=== PATIENT | female | born 1945 | race Caucasian/White ===

== ENCOUNTER 2018-06-01 15:52 | Inpatient (IN) | payer OTHER ==
[~2018-06-01] VITALS: Ht 157.5 cm; Wt 82.6 kg
[2018-06-01 16:14] LABS: ABSOLUTE BASOPHIL COUNT 0 /CUMM (0.0-0.2); ABSOLUTE EOSINOPHIL COUNT 0 /CUMM (0.0-0.7); ABSOLUTE GRANULOCYTE CT 12.3 /CUMM (1.4-6.5); ABSOLUTE MONOCYTE COUNT 0.5 /CUMM (0.10-0.60); BASOPHIL % 0 % (0.0-2.0); EOSINOPHIL % 0.1 % (0-5); GRANULOCYTE % 89.2 % (42.2-75.2); HEMATOCRIT 43.2 % (37-47); MEAN CORPUSCULAR HGB 26.8 PG (27.0-31.0); MEAN CORPUSCULAR HGB CONC 32.6 G/DL (33.0-37.0); MEAN CORPUSCULAR VOLUME 82.1 FL (81.0-99.0); MEAN PLATELET VOLUME 7.6 FL (7.4-10.4); PLATELET COUNT 281 /CUMM (130-400); RBC DISTRIBUTION WIDTH 14.2 % (11.5-14.5); RED BLOOD CELL CT 5.26 /CUMM (4.20-5.40)
[2018-06-01 16:30] LABS: WHITE BLOOD CELL COUNT 13.8 /CUMM (4.8-10.8)
--- NOTE | 2018-06-01 16:45 | RADIOLOGY REPORT ---
EXAMINATION: XR CHEST CLINICAL INFORMATION: Chest pain COMPARISON: None TECHNIQUE: 2 views of the chest were obtained. FINDINGS: No focal consolidation, pleural effusion or pneumothorax. Heart size is normal. No acute osseous abnormality. IMPRESSION: No acute pulmonary process.
--- NOTE | 2018-06-01 18:12 | CT SCAN REPORT ---
EXAMINATION: CT ABDOMEN AND PELVIS WITHOUT CONTRAST CLINICAL INFORMATION: Epigastric abdominal pain COMPARISON: None TECHNIQUE: Multidetector volumetric imaging was performed from the superior aspect of the liver through the pubic symphysis. Sagittal and coronal reformatted images were obtained on the technologist's workstation. DLP: 448.53 mGy-cm FINDINGS: LUNG BASES: The visualized lung bases are unremarkable. LIVER, GALLBLADDER, AND BILIARY TREE: Diffusely decreased attenuation of the hepatic parenchyma. The liver is normal in size and contour. Cholelithiasis. No pericholecystic inflammatory changes. The gallbladder is physiologically distended. Possible gallbladder wall thickening. No pericholecystic fluid definitively seen. PANCREAS: Unremarkable. SPLEEN: Unremarkable. ADRENAL GLANDS: Unremarkable. KIDNEYS AND URETERS: 2.3 cm hypodensity of the mid to lower lateral cortex of the right kidney measuring internal attenuation of 15 Hounsfield units. 1.6 cm hypodense lesion exophytic off the posterior lower pole cortex of the left kidney measuring internal attenuation of 13 Hounsfield units. 2.1 cm hypodensity exophytic off the interpolar cortex of the left kidney measuring internal attenuation of 11 Hounsfield units. Bilobed 3.3 x 2.5 cm hypodensity within the right lower posterolateral cortex of the left kidney measuring internal attenuation of 16 Hounsfield units. No evidence of hydronephrosis or perinephric stranding bilaterally. No renal calculi identified bilaterally. BLADDER: Unremarkable. GASTROINTESTINAL TRACT: Most of the colon is decompressed. The appendix is unremarkable. No evidence of bowel obstruction or perforation. No intraperitoneal free air. ABDOMINAL WALL: No significant hernia is appreciated. LYMPH NODES: No lymphadenopathy within the abdomen or pelvis by CT criteria. VASCULAR: No abdominal aortic aneurysm. PELVIC VISCERA: Unremarkable. OSSEOUS STRUCTURES: Multilevel degenerative changes of the spine. IMPRESSION: 1. No evidence of acute abnormality within the abdomen or pelvis. 2. Cholelithiasis. The gallbladder may have a slightly thickened wall, however there is no pericholecystic fluid or pericholecystic inflammatory changes. Furthermore, the gallbladder is not distended. This CT evidence does not favor acute cholecystitis. Correlation with right upper quadrant ultrasound as well as clinical presentation is recommended. In the absence of acute tenderness over the gallbladder, this may represent subclinical chronic cholecystitis. 3. Hypodense lesions within the renal cortices bilaterally. Evaluation of the kidneys is significantly limited without IV contrast. These most likely represent renal cysts and can be confirmed with renal ultrasound. 4. Diffusely decreased attenuation of the hepatic parenchyma, a nonspecific finding but most commonly on the basis of diffuse hepatocellular disease such as hepatic steatosis.
--- NOTE | 2018-06-01 21:34 | History & Physical ---
James Alvarez 06/01/182132: General Information and HPI MD Statement: I have seen and personally examined DIPTI MONTELONGO and documented this H&P. The patient is a 72 year old F who presented with a patient stated chief complaint of [nausea, vomiting & epigastric pain]. Source of Information: patient, family Exam Limitations: no limitations History of Present Illness: 72 year old female with history of HLD and diabetes mellitus with diabetic nephropathy on home insulin, presents with 3 days of nausea and vomiting, associated with a burning epigastric pain that radiates down and to either side of her upper abdomen, but never to the back. The patient began feeling the burning pain in her epigastrum on Saturday, and she soon lost her appetite and began experiencing nausea and vomiting. Her last meal was on Saturday when she drank a bottle of water and ate a saltine cracker. Since then she has not been able to keep any food down. She reports that she spent the day prior to admission vomiting and feeling nauseous. She specifically denied chest pain, shortness of breath, palpitations, fever or chills. She denied recent travel, sick contacts at home, or eating anything that made anyone else sick. She sees Dr. Morales for her diabetes, and lives at home with her family. Denied tobacco, ETOH or other illicit drug use. Past History Travel History Traveled to [place] past 21 day No Medical History Neurological: NONE EENT: BILATERAL CATARACTS Cardiovascular: NONE Respiratory: NONE Gastrointestinal: NONE Hepatic: NONE Renal: NONE Musculoskeletal: NONE Psychiatric: NONE Endocrine: diabetes, THYROID NODULES Surgical History Surgical History: non-contributory Exam & Diagnostic Data Last 24 Hrs of Vital Signs/I&O Vital Signs Date Time Temp Pulse Resp B/P B/P Pulse O2 O2 Flow FiO2 Mean Ox Delivery Rate 06/010 99.1 95 17 148/72 95 06/01 2234 98.8 105 20 158/82 96 Room Air 06/01 1936 190/84 06/01 1840 98.8 105 20 210/90 97 Room Air 06/01 1635 95 188/102 06/01 1607 97.8 105 18 205/105 95 Room Air Room Air Intake & Output 06/02 0800 06/02 0000 06/01 1600 Intake Total Output Total Balance Patient 82.242 kg Weight Physical Exam General Appearance Alert, Oriented X3, Cooperative, No Acute Distress Last 24 Hrs of Labs/Rolo: Laboratory Tests 06/02/18 0155: Troponin I Pending 06/01/18 2311: Lactic Acid Cancelled 06/01/182022: Urinalysis MOD H, Urine Color YEL, Urine Clarity CLEAR, Urine pH 6.5, Ur Specific [place] 1.025, Urine Protein >=300 H, Urine Ketones NEG, Urine Nitrite NEG, Urine Bilirubin NEG, Urine Urobilinogen 0.2, Ur Leukocyte Esterase NEG, Ur Microscopic SEDIMENT EXAMINED, Urine RBC 3-5, Urine WBC RARE, Ur Epithelial Cells FEW, Urine Bacteria FEW H, Hyaline Casts 10-15 H, Granular Casts RARE H , Urine Mucus FEW, Urine Hemoglobin MOD H, Urine Glucose >=1000 H 06/01/182022: Lactic Acid 1.8, Urine Osmolality 524, Ur Random Creatinine 49.5, Ur Random Sodium 108 H, Ur Random Potassium 47.4, Fraction Sodium Excret 4.0 H 06/01/18 1900: Troponin I 0.02 06/01/18 1608: Anion Gap 16, Estimated GFR 20 L, BUN/Creatinine Ratio 15.8, Glucose 485 H, Lactic Acid 3.8 H, Calcium 9.4, Phosphorus 3.4, Magnesium 1.7, Total Bilirubin 1.0, AST 24, ALT 32, Alkaline Phosphatase 94, Troponin I < 0.01, Total Protein 7.6, Albumin 4.2, Globulin 3.4, Albumin/Globulin Ratio 1.2, Lipase 246, CBC w Diff NO MAN DIFF REQ, RBC 5.26, MCV 82.1, MCH 26.8 L, MCHC 32.6 L, RDW 14.2, MPV 7.6, Gran % 89.2 H, Lymphocytes % 6.9 L, Monocytes % 3.8, Eosinophils % 0.1, Basophils % 0, Absolute Granulocytes 12.3 H, Absolute Lymphocytes 1.0 L, Absolute Monocytes 0.5, Absolute Eosinophils 0, Absolute Basophils 0 Microbiology 06/01 2032 URINE ROUT: Urine Culture - RECD Assessment/Plan Assessment: 72 year old diabetic female presenting with hypertensive urgency, nausea, vomiting and TANIA on CKD, with epigastric pain concerning for atypical chest pain. Blood pressure in the ED was noted to be 210/90. Last known HgB A1C was 7.1 in November,. EKG showed non-specific T-wave changes. CT abdomen/pelvis showed: Cholelithiasis and slightly thickened gallbladder wall , with no pericholecystic fluid or pericholecystic inflammatory changes, and non -distended gallbladder. Hypodense lesions within the renal cortices bilaterally, although evaluation of the kidneys is significantly limited without IV contrast. Most likely representing renal cysts and can be confirmed with renal ultrasound. Problems: 1. Hypertensive urgency 2. Atypical chest pain 3. Diabetes mellitus & hyperglycemia 4. CKD stage III Plan: -Admit the patient to telemetry -Repeat EKG & Troponins -Consider cardiology consultation -RUQ ultrasound r/o cholecystitis -Renal ultrasound -Endocrinology consultation (Dr. Morales) -Consider nephrology consultation after renal ultrasound -Dilaudid 0.5mg IV PRN Q6H pain -Resume home dose of Levemir insulin, 16 units sub-q each am -Novolin sliding scale Q6H -D5-NS IV 75mL/hr -Zofran 4mg IV Q8H PRN nausea/vomiting -Consider GI consultation DNR/DNI Clear liquid diet for now ALPS & Heparin DVT ppx As Ranked By This Provider Problem List: 1. TANIA (acute kidney injury) 2. Hyperglycemia Core Measures/Misc (06/02) Acute Coronary Syndrome ACS Diagnosis: No Congestive Heart Failure Congestive Heart Failure Diagnosis No Cerebrovascular Accident CVA/TIA Diagnosis: No VTE (View Protocol) VTE Risk Factors Age>40 No Mechanical VTE Prophylaxis d/t N/A MechProphylax Ordered No VTE Pharm Prophylaxis d/t NA PharmProphylax ordered Sepsis (View protocol) Sepsis Present: No If YES complete Sepsis Event Note If YES complete Sepsis Event Note Yee Moscoso MD 06/02/18 0151: Core Measures/Misc (06/02) Sepsis (View protocol) If YES complete Sepsis Event Note If YES complete Sepsis Event Note Resident Review Statement Resident Statement: examined this patient, discussed with internal combustion engine subassembler, agreed with internal combustion engine subassembler, discussed with family, reviewed EMR data (avail), amended to note Other Findings: Patient is a 72-year-old obese female with past medical history significant for diabetes, diabetic neuropathy presenting this admission with chief complaint of nausea and vomiting. Patient reports she started having nausea and vomiting over the past 2 days with her last episode of emesis on the morning of admission. Per ED notes patient had Silverio's prior to her symptoms. Patient reports that she is unable to tolerate food or water. Associated symptoms include epigastric pain which she describes as a burning sensation along with hiccups. Reports that that pain travels from the epigastric region to her right and left upper quadrants. Denies any radiation to the back. Patient denies any hematemesis. Denies constipation/diarrhea. Denies dysuria/hematuria, fever/chills. Denies shortness of breath, palpitations. Reports numbness and tingling in her feet due to diabetic neuropathy that has unchanged. Patient denies any recent sick contacts, travel, bug bites/tick bites. Reports she recently acquired pet fish. Patient lives with her and son. Reports that no one else in the house is sick. Past medical history: As above Past surgical history: Cataract surgery Social history: Patient denies use of tobacco, alcohol, illicit drug use. Reports ambulating without assistance and is independent with activities of daily living. Allergies: Denies any allergies to medications Medications: Pravastatin, Levemir, aspirin, glipizide, vitamin D Physical exam and lab findings as above Patient is a 72-year-old female with past medical history significant for diabetes and diabetic neuropathy and CKD of unknown etiology however likely secondary to diabetes presenting this admission with atypical chest pain with ST depressions in leads V5 and V6 with negative troponin. Blood pressure initially was greater than 200 systolic over 100 diastolic. Lab findings significant for hyponatremia of 132, hyperkalemia of 5.3, BUN of 38 and creatinine of 2.4 ( previous creatinine of 1.9). Initial lactic acid was 3.8 which came down to 1.8 after IV fluid hydration. Patient's sugar on admission was 485. CT abdomen and pelvis without contrast showed no acute cholecystitis however did show cholelithiasis with gallbladder wall thickening as well as high blood density lesions within the renal cortices and diffusely decreased attenuation of the hepatic parenchyma. Patient will be admitted to the telemetry unit for management of followin. Atypical chest pain rule out ACS 2. Hypertensive urgency 3. Right upper quadrant pain- CT scan negative for acute cholecystitis, cholelithiasis seen on imaging 4. TANIA on CKD 5. Hyperglycemia, history of diabetes 6. Hyponatremia, hyperkalemia Plan: Admit to telemetry with continuous telemetry monitoring Serial troponins and EKGs Cardiology consult Nothing by mouth after midnight for right upper quadrant ultrasound and possible surgery Surgery consulted Monitor blood pressure- has decreased without antihypertensive medication IV fluid hydration Avoid NSAIDs and nephrotoxic agents Monitor renal function Monitor electrolytes and replete as needed Check coags Check urine osmolarity, lytes Kidney ultrasound in the morning Consider nephrology consult Continue home medication of pravastatin, Levemir 16 units Placed on Accu-Cheks every 6 hours with Novolin sliding scale Code: DNR/DNI Diet: Nothing by mouth after midnight DVT prophylaxis: Alps, heparin subcutaneous Dhaval ASHERRock 06/02/18 0417: General Information and HPI MD Statement: I have seen and personally examined DIPTI MONTELONGO and documented this H&P. The patient is a 72 year old F who presented with a patient stated chief complaint of []. Allergies/Medications Allergies: Coded Allergies: No Known Allergies (06/01/18) Home Med list Ergocalciferol (Vitamin D2) (Vitamin D2) 50,000 UNIT CAPSULE 1 CAP PO Q 2 WEEKS VITAMIN D DEFICIENCY (Reported) Glipizide 10 MG TABLET 1 TAB PO BID DIABETES (Reported) Insulin Detemir (Levemir Flextouch) 100 UNIT/ML (3 ML) INSULN.PEN 16 UNIT SC DAILY DIABETES (Reported) Pravastatin Sodium 20 MG TABLET 1 TAB PO DAILY HEART (Reported) Review of Systems Review of Systems Constitutional: Reports: see HPI. Exam & Diagnostic Data Last 24 Hrs of Vital Signs/I&O Vital Signs Date Time Temp Pulse Resp B/P B/P Pulse O2 O2 Flow FiO2 Mean Ox Delivery Rate 06/01 2320 99.1 95 17 148/72 95 06/01 2234 98.8 105 20 158/82 96 Room Air 06/01 1936 190/84 06/01 1840 98.8 105 20 210/90 97 Room Air 06/01 1635 95 188/102 06/01 1607 97.8 105 18 205/105 95 Room Air Room Air Intake & Output 06/02 0800 06/02 0000 06/01 1600 Intake Total Output Total Balance Patient 181 lb Weight Physical Exam General Appearance Alert, Oriented X3, Cooperative, No Acute Distress Skin No Rashes, No Breakdown, No Significant Lesion Skin Temp/Moisture Exam: Warm/Dry Sepsis Skin Exam (color): Normal for Ethnicity HEENT Atraumatic, PERRLA, EOMI Neck Supple Lymphatic Axillary nl, Cervical nl Cardiovascular Regular Rate, Normal S1, Normal S2 Lungs Clear to Auscultation, Normal Air Movement Abdomen Normal Bowel Sounds, Soft, No Tenderness (Given MSO4 prior to exam) Sepsis Peripheral Pulse Location: Dorsalis Pedis Sepsis Peripheral Pulse Exam: Normal Sepsis Cap Refill Exam: <2 Sec Last 24 Hrs of Labs/Rolo: Laboratory Tests 06/02/18 0155: Troponin I 0.03 06/01/18 2311: Lactic Acid Cancelled 06/01/182022: Urinalysis MOD H, Urine Color YEL, Urine Clarity CLEAR, Urine pH 6.5, Ur Specific [place] 1.025, Urine Protein >=300 H, Urine Ketones NEG, Urine Nitrite NEG, Urine Bilirubin NEG, Urine Urobilinogen 0.2, Ur Leukocyte Esterase NEG, Ur Microscopic SEDIMENT EXAMINED, Urine RBC 3-5, Urine WBC RARE, Ur Epithelial Cells FEW, Urine Bacteria FEW H, Hyaline Casts 10-15 H, Granular Casts RARE H , Urine Mucus FEW, Urine Hemoglobin MOD H, Urine Glucose >=1000 H 06/01/182022: Lactic Acid 1.8, Urine Osmolality 524, Ur Random Creatinine 49.5, Ur Random Sodium 108 H, Ur Random Potassium 47.4, Fraction Sodium Excret 4.0 H 06/01/18 1900: Troponin I 0.02 06/01/18 1608: Anion Gap 16, Estimated GFR 20 L, BUN/Creatinine Ratio 15.8, Glucose 485 H, Lactic Acid 3.8 H, Calcium 9.4, Phosphorus 3.4, Magnesium 1.7, Total Bilirubin 1.0, AST 24, ALT 32, Alkaline Phosphatase 94, Troponin I < 0.01, Total Protein 7.6, Albumin 4.2, Globulin 3.4, Albumin/Globulin Ratio 1.2, Lipase 246, CBC w Diff NO MAN DIFF REQ, RBC 5.26, MCV 82.1, MCH 26.8 L, MCHC 32.6 L, RDW 14.2, MPV 7.6, Gran % 89.2 H, Lymphocytes % 6.9 L, Monocytes % 3.8, Eosinophils % 0.1, Basophils % 0, Absolute Granulocytes 12.3 H, Absolute Lymphocytes 1.0 L, Absolute Monocytes 0.5, Absolute Eosinophils 0, Absolute Basophils 0 Microbiology 06/01 2032 URINE ROUT: Urine Culture - RECD Core Measures/Misc (06/02) Sepsis (View protocol) If YES complete Sepsis Event Note If YES complete Sepsis Event Note Attending MD Review Statement Attending Statement Attending MD Statement: examined this patient, discuss w/resident/PA/RADIO INSTALLER AUTOMOBILE, agreed w/resident/PA/RADIO INSTALLER AUTOMOBILE, reviewed EMR data (avail) Attending Assessment/Plan: This patient is a 72-year-old female with a significant past medical history for diabetes, diabetic neuropathy and HLD who presents with a 3 day history of nausea vomiting, associated with a burning epigastric pain. The patient reports she started having nausea and vomiting over the past 2 days with her last episode of emesis on the morning of admission. Per ED notes patient had Silverio's prior to her symptoms. Patient reports that she is unable to tolerate food or water. While in the emergency department the patient remained afebrile with a significantly elevated blood pressure as high as 205/105 on admission, her white blood cell count is elevated at 13.8, she is hyponatremic 132, hyperkalemic 5.3, BUN and creatinine were 38 over 2.4, lactic acid was 3.8 1.8, CAT scan of her abdomen demonstrated 1. No evidence of acute abnormality within the abdomen or pelvis. 2. Cholelithiasis. The gallbladder may have a slightly thickened wall, however there is no pericholecystic fluid or pericholecystic inflammatory changes.3. Hypodense lesions within the renal cortices bilaterally. These most likely represent renal cysts and can be confirmed with renal ultrasound. 4. Diffusely decreased attenuation of the hepatic parenchyma, a nonspecific finding but most commonly on the basis of diffuse hepatocellular disease such as hepatic steatosis., In light of the finding surgical consult canceled, and chest x-ray without acute process. Patient will be admitted to the telemetry floor for rule out acute coronary syndrome, acute renal failure, nausea vomiting, likely abnormalities and elevated white blood cell count. Serial troponins and EKGs, Cardiology consult, Nothing by mouth after midnight for right upper quadrant ultrasound and possible surgery, IV fluid hydration, Kidney ultrasound in the morning and consult endocrinology. DNR/DNI
[2018-06-01 23:20] VITALS: BP 148/72
[2018-06-02] MEDS ORDERED: GLIPIZIDE10 M2 PO (00:46)
[2018-06-02] MEDS ORDERED: PRAVASTATIN SOD20 M2 PO (00:46)
[2018-06-02] MEDS ORDERED: LEVEMIR FL100 UNIT/1 SC (00:46)
[2018-06-02] MEDS ORDERED: VITAMIN D250000 UNIT PO (00:47)
--- NOTE | 2018-06-02 02:07 | ED GENERAL ADULT ---
History of Present Illness General Chief Complaint: Chest Pain Stated Complaint: ACUTE KIDNEY INJURY Source: patient Exam Limitations: clinical condition Vital Signs & Intake/Output Vital Signs & Intake/Output Vital Signs Date Time Temp Pulse Resp B/P B/P Pulse O2 O2 Flow FiO2 Mean Ox Delivery Rate 06/01 2320 99.1 95 17 148/72 95 06/01 2234 98.8 105 20 158/82 96 Room Air 06/01 1936 190/84 06/01 1840 98.8 105 20 210/90 97 Room Air 06/01 1635 95 188/102 06/01 1607 97.8 105 18 205/105 95 Room Air Room Air ED Intake and Output 06/02 0000 06/01 1200 Intake Total Output Total Balance Patient 181 lb Weight Allergies Coded Allergies: No Known Allergies (06/01/18) Reconcile Medications Ergocalciferol (Vitamin D2) (Vitamin D2) 50,000 UNIT CAPSULE 1 CAP PO Q 2 WEEKS VITAMIN D DEFICIENCY (Reported) Glipizide 10 MG TABLET 1 TAB PO BID DIABETES (Reported) Insulin Detemir (Levemir Flextouch) 100 UNIT/ML (3 ML) INSULN.PEN 16 UNIT SC DAILY DIABETES (Reported) Pravastatin Sodium 20 MG TABLET 1 TAB PO DAILY HEART (Reported) Triage Note: triage: 72 Y/O FEMALE SENT IN BY URGENT CARE FOR TACHYCARDIA: RATE OF 120; HIGH BP: 196/110; AND NAUSEA/VOMITING X24 HOURS. NO INTERVENTIONS ATTEMPTED AT URGENT CARE PRIOR TO ARRIVAL. PATIENT REPORTS DISCOMFORT IN EPIGASTRIC REGION. EKG COMPLETED UPON ARRIVAL. Triage Nurses Notes Reviewed? yes HPI: 72 yo f with pmhx sig for HLD and DM2 here from with complaints of nausea and vomiting with epigastric pain x 2 days since eating [employer]. Also with chest discomfort near this area. No overty dyspnea. Unable to tolerate PO. No URi sx. Sent here for concern over dehydration Past History Travel History Traveled to [place] past 21 day No Medical History Any Pertinent Medical History? none Neurological: NONE EENT: BILATERAL CATARACTS Cardiovascular: NONE Respiratory: NONE Gastrointestinal: NONE Hepatic: NONE Renal: NONE Musculoskeletal: NONE Psychiatric: NONE Endocrine: diabetes, THYROID NODULES Surgical History Surgical History: non-contributory Psychosocial History What is your primary language Azerbaijani Tobacco Use: Never used Family History Hx Contributory? No Review of Systems Review of Systems Constitutional: Reports: see HPI. Cardiovascular: Reports: chest pain. GI: Reports: nausea, vomiting. Denies: diarrhea. Physical Exam Physical Exam General Appearance: well developed/nourished (distressed from vomiting) Head: atraumatic, normal appearance Eyes: Bilateral: normal appearance. Ears, Nose, Throat: normal ENT inspection, hearing grossly normal Neck: supple Respiratory: normal breath sounds Cardiovascular: tachycardia Gastrointestinal: soft, guarding, tenderness Core Measures ACS in differential dx? Yes CVA/TIA Diagnosis: No Sepsis Present: No Sepsis Focused Exam Completed? No Progress Differential Diagnoses I considered the following diagnoses in my evaluation of the patient: acs, pancreatitis, gerd, chol, perforation Plan of Care: Orders Procedure Date/time Status Nothing by Mouth 06/02 B Active US-RENAL/KIDNEY 06/02 06 Active CBC WITHOUT DIFFERENTIAL 06/02 0600 Active BASIC ELECTROLYTES PLUS BUN&CR 06/02 0600 Active TROPONIN LEVEL 06/02 0200 Active EKG 06/02 0200 Active Saline Lock 06/02 0039 Active Pathway - chart 06/02 0039 Active House Staff 06/02 0039 Active Code Status 06/02 0039 Active Lab Add-on Test 06/02 UNK Active VTE Mechanical Prophylaxis 06/02 UNK Active Vital Signs 06/02 UNK Active Intake & Output 06/02 UNK Active FingerStick- Glucose 06/02 UNK Active Activity/Ambulation 06/02 UNK Active Clear Liquid Diet 06/01 D Complete CULTURE,URINE 06/01 2304 Active Telemetry/Spring Coiling Machine Setter 06/01 2241 Active Weight 06/01 2240 Active Vital Signs 06/01 2240 Active Teach/Educate 06/01 2240 Active Pain Treatment and Response 06/01 2240 Active Nutritional Intake, Monitor 06/01 2240 Active Isolation 06/01 2240 Active Intake & Output 06/01 2240 Active Patient Care Conference 06/01 2240 Active Activity/Ambulation 06/01 2240 Active ED Holding Orders 06/01 2213 Active Patient Data 06/01 2150 Active Admit to inpatient 06/014 Active FingerStick- Glucose 06/01 2124 Active URINE OSMOLALITY 06/01 2023 Complete URINE LYTES, SPOT 06/01 2023 Complete LACTIC ACID 06/01 2011 Complete TROPONIN LEVEL 06/01 1847 Complete EKG 06/01 1847 Active US-LIMITED ABDOMEN 06/01 1825 Active Add-on Test (ER Only) 06/01 1638 Active LIPASE 06/01 1608 Complete LACTIC ACID 06/01 1608 Complete Intake & Output 06/01 1604 Active URINALYSIS 06/01 1559 Complete TROPONIN LEVEL 06/01 1559 Complete PHOSPHORUS 06/01 1559 Complete MAGNESIUM 06/01 1559 Complete COMPREHENSIVE METABOLIC PANEL 06/01 1559 Complete CBC WITHOUT DIFFERENTIAL 06/01 1559 Complete EKG 06/01 1553 Active Current Medications Sig/Enrike Start time Last Medication Dose Stop Time Status Admin Insulin Detemir 16 UNITS DAILY 06/02 09 AC (Levemir) Pravastatin Sodium 20 MG DAILY 06/02 09 AC (Pravachol) Heparin Sodium 5,000 UNIT Q8 06/02 06 AC (Porcine) Senna/Docusate Sodium 1 TAB AT BEDTIME PRN 06/02 0200 AC (Senokot S) Acetaminophen 650 MG Q6P PRN 06/02 0045 AC (Tylenol) Acetaminophen 1,000 MG Q6P PRN 06/02 0045 AC (Ofirmev) Dextrose/Sodium 1,000 ML .[id number] 06/02 0045 AC 06/02 Chloride 0115 (D5-Normal Saline) Hydromorphone HCl 0.5 MG Q6-PRN PRN 06/02 0045 AC 06/02 (Dilaudid) 0115 Ondansetron HCl 4 MG Q8P PRN 06/02 0045 AC 06/02 (Zofran) 0115 Polyethylene Glycol 17 GM AT BEDTIME PRN 06/02 0045 AC (Miralax) Insulin Human Regular 0 Q6 06/02 0042 AC 06/02 (NovoLIN R) 0114 Sodium Chloride 1,000 ML ONCE ONE 06/01 1700 CAN (Normal Saline 0.9%) 06/01 1701 Sodium Chloride See Dose ONCE ONE 06/01 1700 CAN (Normal Saline 0.9%) Insts (1) 06/01 1701 Sodium Chloride 1,000 ML ONCE ONE 06/01 1700 CAN (Normal Saline 0.9%) 06/01 1701 Sodium Chloride 1,000 ML ONCE ONE 06/01 1645 CAN (Normal Saline 0.9%) 06/01 1646 Dose Instructions: (1)Sodium Chloride (Normal Saline 0.9%): BOLUS Laboratory Tests 06/02/18 0155: Troponin I Pending 06/01/18 2311: Lactic Acid Cancelled 06/01/182022: Urinalysis MOD H, Urine Color YEL, Urine Clarity CLEAR, Urine pH 6.5, Ur Specific [place] 1.025, Urine Protein >=300 H, Urine Ketones NEG, Urine Nitrite NEG, Urine Bilirubin NEG, Urine Urobilinogen 0.2, Ur Leukocyte Esterase NEG, Ur Microscopic SEDIMENT EXAMINED, Urine RBC 3-5, Urine WBC RARE, Ur Epithelial Cells FEW, Urine Bacteria FEW H, Hyaline Casts 10-15 H, Granular Casts RARE H , Urine Mucus FEW, Urine Hemoglobin MOD H, Urine Glucose >=1000 H 06/01/182022: Lactic Acid 1.8, Urine Osmolality 524, Ur Random Creatinine 49.5, Ur Random Sodium 108 H, Ur Random Potassium 47.4, Fraction Sodium Excret 4.0 H 06/01/18 1900: Troponin I 0.02 06/01/18 1608: Anion Gap 16, Estimated GFR 20 L, BUN/Creatinine Ratio 15.8, Glucose 485 H, Lactic Acid 3.8 H, Calcium 9.4, Phosphorus 3.4, Magnesium 1.7, Total Bilirubin 1.0, AST 24, ALT 32, Alkaline Phosphatase 94, Troponin I < 0.01, Total Protein 7.6, Albumin 4.2, Globulin 3.4, Albumin/Globulin Ratio 1.2, Lipase 246, CBC w Diff NO MAN DIFF REQ, RBC 5.26, MCV 82.1, MCH 26.8 L, MCHC 32.6 L, RDW 14.2, MPV 7.6, Gran % 89.2 H, Lymphocytes % 6.9 L, Monocytes % 3.8, Eosinophils % 0.1, Basophils % 0, Absolute Granulocytes 12.3 H, Absolute Lymphocytes 1.0 L, Absolute Monocytes 0.5, Absolute Eosinophils 0, Absolute Basophils 0 Microbiology 06/01 2032 URINE ROUT: Urine Culture - RECD Initial ED EKG: ST depression Comments: 72 yo F with hpiu as above. EKG with lateral depressions, troponin negative x 2 with EKG unchanged on follow up. given tenderness and overtness of GI sx, still leaning toward GI as culprit vs ACS. CT scna negative. Dr. Britt consulted for possible cholecystitis and stones. Unable to pursue US but at this time they believe US can wait until morning without immediate intervention. ONTIVEROS during resuscitation (with resultant decreased lactate). treated successfully with reglan. ONTIVEROS brought on by vomiting per patient. TANIA as well. Elevated glucose. Treated both with fluids. Departure Departure Disposition: STILL A PATIENT Condition: Stable Clinical Impression Primary Impression: TANIA (acute kidney injury) Secondary Impressions: Hyperglycemia Referrals: Marielena Hines MD (PCP/Family) Departure Forms: Customer Survey General Discharge Information Critical Care Note Critical Care Note Critical Care Time: non-applicable
[2018-06-02 06:45] VITALS: BP 144/82
--- NOTE | 2018-06-02 07:16 | PN- Housestaff ---
Caroline Farfan 06/02/18 0716: Subjective Follow-up For: Atypical chest pain Cholelithiasis Hypertensive urgency Diabetes Mellitus Subjective: Afebrile overnight. Patient is seen and examined this morning. Patient states she still has some mild abdominal tenderness today with a most recent pain rating of 5 out of 10. Patient had some episodes of nausea prior, but is not presently nauseous. Patient denies any active chest pain or palpitations. Patient is currently NPO for a right upper quadrant ultrasound. Patient otherwise denies any shortness of breath, fevers, chills, fatigue, and dizziness. Review of Systems Constitutional: Reports: see HPI. Objective Last 24 Hrs of Vital Signs/I&O Vital Signs Date Time Temp Pulse Resp B/P B/P Pulse O2 O2 Flow FiO2 Mean Ox Delivery Rate 06/02 1500 97.6 70 20 140/70 95 Room Air 06/02 0645 98.5 75 20 144/82 93 06/01 2320 99.1 95 17 148/72 95 06/01 2234 98.8 105 20 158/82 96 Room Air 06/01 1936 190/84 06/01 1840 98.8 105 20 210/90 97 Room Air 06/01 1635 95 188/102 06/01 1607 97.8 105 18 205/105 95 Room Air Room Air Intake & Output 06/02 1600 06/02 0800 06/02 0000 Intake Total 600 Output Total 500 Balance 100 Intake, IV 600 Output, Urine 500 Patient 181 lb Weight Physical Exam General Appearance: Alert, Oriented X3, Cooperative, No Acute Distress Skin: No Rashes Skin Temp/Moisture Exam: Warm/Dry HEENT: Atraumatic Neck: Supple Cardiovascular: Regular Rate, Normal S1, Normal S2 Lungs: Clear to Auscultation Abdomen: Soft, mild abdomen tenderness Neurological: Normal Speech Extremities: No Edema, Normal Pulses Assessment/Plan Assessment: US RUQ and Renal - 1. Cholelithiasis. Gallbladder wall thickening is present with fluid within the gallbladder wall in addition to pericholecystic fluid. A sonographic Mclain's sign however was not elicited. These findings may represent acute cholecystitis. Clinical correlation recommended. 2. Diffusely increased liver echogenicity. This is a nonspecific finding but most suggestive of hepatic steatosis. Clinical correlation recommended. 3. Both kidneys demonstrate diffusely increased echogenicity and there is mild cortical thinning of the left kidney. These findings are consistent with chronic renal disease. 4. Bilateral renal cysts. No renal calculi or hydronephrosis. 72 year old diabetic female presenting with hypertensive urgency, nausea, vomiting and TANIA on CKD, with epigastric pain concerning for atypical chest pain. Patient admitted to telemetry floor for the following reasons: #Atypical chest pain, likely GI related -Epigastric pain with associated n/v -Serial EKG and troponins; normal levels x4 readings -RUQ ultrasound for concern of cholecystitis; image findings showed gallbladder wall thickening with fluid within the gallbladder wall in addition to pericholecystic fluid; sonographic Mclain's sign was not elicited -1/2 NS IV 75mL/hr -Zofran 4mg IV Q8p for nausea/vomiting -Acetaminophen IV for pain control -HIDA scan, follow up -Consulted surgery, awaiting recs from surgical PA and Dr. Tomas; #Hypertensive Urgency -Blood pressure on admission 205/105 -No home blood pressure medications -Continue to monitor BP #Diabetes mellitus, with CKD Stage III -Insulin, sliding scale -AccuChecks -Levemir insulin 16 units qd -Renal Ultrasound with findings consistent with chronic renal disease; notably diffusely increased echogenicity and there is mild cortical thinning of the left kidney Diet: NPO ALPS & Heparin DVT PPx Code Status: DNR/DNI Problem List: 1. TANIA (acute kidney injury) 2. Cholelithiasis 3. Hyperglycemia Pain Ratin Pain Location: abdomen Pain Goal: Pain 4 or less Pain Plan: prn meds Tomorrow's Labs & Rationales: routine Etta Justin MD 06/02/18 1336: Attending MD Review Statement Attending Statement Attending MD Statement: examined this patient, discuss w/resident/PA/WATER CHASER, agreed w/resident/PA/WATER CHASER, reviewed EMR data (avail) Attending Assessment/Plan: 72F PMH HTN, HLD admitted with nausea, vomiting and epigastric pain, found to have elevated lactate, acute on chronic kidney injury. She was in hypertensive urgency initially but this has improved. Today she still has some abdominal tenderness and nausea but has not vomited. RUQ U/S shows signs of cholecystitis. No telemetry events, EKG NSR. 1. Cholecystitis 2. Acute on CKD stage 3 3. Lactic acidosis 4. Atypical chest pain Plan - Continue on telemetry - Surgery consult - HIDA scan - Hold off on antibiotics for now - Gentle IV hydration - Continue anti-hypertensives - Follow cardiology recommendations - DVT PPx
[2018-06-02 08:16] LABS: PTT 22 SEC (25-37)
--- NOTE | 2018-06-02 08:24 | PN- Student ---
Subjective Subjective: Patient was seen and examined this am. Pt is afebrile and blood pressure is remains elevated, but decreased from admission. SBP 140s-150s, DBP 70s-80s. Pt was alert and cooperative. She currently denies nausea, vomiting, abdominal pain ; reports that she has had hiccups for the past 2 days. Pt is NPO with D5NS @ 75ml/hr for RUQ ultrasound. Review of Systems Review of Systems Constitutional: Denies: chills, diaphoresis, fever, unexplained weight loss. EENTM: Reports: throat pain (due to vomiting). Denies: visual changes, hearing changes , nasal congestion. Cardiovascular: Reports: peripheral edema. Denies: chest pain, orthopena, palpitations. Respiratory: Denies: cough, short of breath, wheezing. GI: Denies: abdominal pain, constipation, diarrhea, nausea, vomiting. Genitourinary: Denies: dysuria, frequency. Musculoskeletal: Denies: joint pain, muscle pain, muscle stiffness. Neurological/Psychological: Reports: other (diabetic neuropathy). Hematologic/Endocrine: Denies: bruising, bleeding. Objective Objective: Current Medications Sig/Enrike Start time Last Medication Dose Stop Time Status Admin Acetaminophen 650 MG Q6P PRN 06/02 0045 AC (Tylenol) Acetaminophen 1,000 MG Q6P PRN 06/02 0045 AC (Ofirmev) Dextrose/Sodium 1,000 ML .[id number] 06/02 0045 AC 06/02 Chloride 0115 (D5-Normal Saline) Heparin Sodium 5,000 UNIT Q8 06/02 0600 AC 06/02 (Porcine) 0627 Hydromorphone HCl 0.5 MG Q6-PRN PRN 06/02 0045 AC 06/02 (Dilaudid) 0115 Insulin Detemir 16 UNITS DAILY 06/02 09 AC (Levemir) Insulin Human Regular 0 Q6 06/02 0042 AC 06/02 (NovoLIN R) 0628 Ondansetron HCl 4 MG Q8P PRN 06/02 0045 AC 06/02 (Zofran) 0115 Polyethylene Glycol 17 GM AT BEDTIME PRN 06/02 0045 AC (Miralax) Pravastatin Sodium 20 MG DAILY 06/02 0900 AC (Pravachol) Senna/Docusate Sodium 1 TAB AT BEDTIME PRN 06/02 0200 AC (Senokot S) Sodium Chloride 1,000 ML ONCE ONE 06/01 170 CAN (Normal Saline 0.9%) 06/01 1701 Sodium Chloride See Dose ONCE ONE 06/01 170 CAN (Normal Saline 0.9%) Insts (1) 06/01 1701 Sodium Chloride 1,000 ML ONCE ONE 06/01 1700 CAN (Normal Saline 0.9%) 06/01 170 Sodium Chloride 1,000 ML ONCE ONE 06/01 1645 CAN (Normal Saline 0.9%) 06/01 164 Dose Instructions: (1)Sodium Chloride (Normal Saline 0.9%): BOLUS Results Results: Laboratory Tests 06/02/18 0735: Sodium Pending, Potassium Pending, Chloride Pending, Carbon Dioxide Pending, Anion Gap Pending, BUN Pending, Creatinine Pending, BUN/Creatinine Ratio Pending , Troponin I Pending, PT Pending, INR Pending, APTT Pending, CBC w Diff Pending, WBC Pending, RBC Pending, Hgb Pending, Hct Pending, MCV Pending, MCH Pending, MCHC Pending, RDW Pending, Plt Count Pending, MPV Pending 06/02/18 0155: Troponin I 0.03 06/01/18 2311: Lactic Acid Cancelled 06/01/182022: Urinalysis MOD H, Urine Color YEL, Urine Clarity CLEAR, Urine pH 6.5, Ur Specific [place] 1.025, Urine Protein >=300 H, Urine Ketones NEG, Urine Nitrite NEG, Urine Bilirubin NEG, Urine Urobilinogen 0.2, Ur Leukocyte Esterase NEG, Ur Microscopic SEDIMENT EXAMINED, Urine RBC 3-5, Urine WBC RARE, Ur Epithelial Cells FEW, Urine Bacteria FEW H, Hyaline Casts 10-15 H, Granular Casts RARE H , Urine Mucus FEW, Urine Hemoglobin MOD H, Urine Glucose >=1000 H 06/01/182022: Lactic Acid 1.8, Urine Osmolality 524, Ur Random Creatinine 49.5, Ur Random Sodium 108 H, Ur Random Potassium 47.4, Fraction Sodium Excret 4.0 H 06/01/18 1900: Troponin I 0.02 06/01/18 1608: Anion Gap 16, Estimated GFR 20 L, BUN/Creatinine Ratio 15.8, Glucose 485 H, Lactic Acid 3.8 H, Calcium 9.4, Phosphorus 3.4, Magnesium 1.7, Total Bilirubin 1.0, AST 24, ALT 32, Alkaline Phosphatase 94, Troponin I < 0.01, Total Protein 7.6, Albumin 4.2, Globulin 3.4, Albumin/Globulin Ratio 1.2, Lipase 246, CBC w Diff NO MAN DIFF REQ, RBC 5.26, MCV 82.1, MCH 26.8 L, MCHC 32.6 L, RDW 14.2, MPV 7.6, Gran % 89.2 H, Lymphocytes % 6.9 L, Monocytes % 3.8, Eosinophils % 0.1, Basophils % 0, Absolute Granulocytes 12.3 H, Absolute Lymphocytes 1.0 L, Absolute Monocytes 0.5, Absolute Eosinophils 0, Absolute Basophils 0 Microbiology 06/01 2032 URINE ROUT: Urine Culture - RECD PHYSICAL EXAM Last 24hrs of Vital Signs Vital Signs Date Time Temp Pulse Resp B/P B/P Pulse O2 O2 Flow FiO2 Mean Ox Delivery Rate 06/02 0645 98.5 75 20 144/82 93 06/01 2320 99.1 95 17 148/72 95 06/01 2234 98.8 105 20 158/82 96 Room Air 06/01 1936 190/84 06/01 1840 98.8 105 20 210/90 97 Room Air 06/01 1635 95 188/102 06/01 1607 97.8 105 18 205/105 95 Room Air Room Air Physical Exam General Appearance Alert, Cooperative, No Acute Distress HEENT Atraumatic Cardiovascular Regular Rate, Normal S1, Normal S2, No Murmurs Lungs Clear to Auscultation, Normal Air Movement Abdomen Normal Bowel Sounds, Soft, No Tenderness Neurological Normal Speech Extremities No Cyanosis, Normal Pulses, 1+ pitting edema on LE Assessment/Plan Assessment: Pt is a 72yo F with a PMH of diabetes mellitus and CKD stage III, presenting with hypertensive urgency, nausea/vomiting and epigastric pain for past two days , and TANIA. Pt does not recall any specific triggers for nausea and vomiting, reports vomit as bilious and brown, but nonbloody. Reports ongoing hiccups since onset of nausea and vomiting. Denies fevers, chills, night sweats. Reports fatigue and lack of sleep for the past two days. On PE, lungs were clear to auscultation, normal RRR, no chest wall tenderness, 1+ pitting edema. Pt reports occasional leg swelling. There was no tenderness of palpation of abdomen, no guarding, no rebound. Hypoactive bowel sounds in all 4 quadrants. Patient is afebrile, elevated BP, SBP 140s, DBP, 70-80s. Pt does not on any home hypertension medications. Pt is NPO on D5NS @ 75ml/hr for RUQ ultrasound. Labs show leukocytosis (13.8), troponin (0.03), high glucose (485), high urine protein (>300), moderate urine hemoglobin. Abdominal CT showed subclinical chronic cholecystitis, ?renal cysts, ?diffuse hepatocellular disease, recommended f/u US. Plan: 1. epigastric pain - f/u ultrasound - switch to carbohydrate diet after ultrasound - ?nephrology consult after US - Zofran for nausea 2. TANIA - monitor Cr, previous Cr from Nov 2017 1.9 3. Diabetes mellitus - blood glucose on admission was 485 - patient reports baseline is around low 100s - continued on home dose of levemir insulin - added on novolin 4. continue home med: pravastatin
[2018-06-02 08:31] LABS: ABSOLUTE BASOPHIL COUNT 0 /CUMM (0.0-0.2); ABSOLUTE EOSINOPHIL COUNT 0.1 /CUMM (0.0-0.7); ABSOLUTE GRANULOCYTE CT 9.4 /CUMM (1.4-6.5); BASOPHIL % 0.3 % (0.0-2.0); EOSINOPHIL % 0.5 % (0-5); GRANULOCYTE % 75.1 % (42.2-75.2); MEAN CORPUSCULAR HGB 27.9 PG (27.0-31.0); MEAN CORPUSCULAR VOLUME 81.9 FL (81.0-99.0); MEAN PLATELET VOLUME 7.9 FL (7.4-10.4); PLATELET COUNT 238 /CUMM (130-400); RBC DISTRIBUTION WIDTH 14.6 % (11.5-14.5); RED BLOOD CELL CT 4.35 /CUMM (4.20-5.40); WHITE BLOOD CELL COUNT 12.5 /CUMM (4.8-10.8)
[2018-06-02 08:57] LABS: HEMATOCRIT 35.7 % (37-47)
--- NOTE | 2018-06-02 11:39 | ULTRASOUND REPORT ---
EXAMINATION: 1. US ABDOMEN LIMITED (RIGHT UPPER QUADRANT) 2. ULTRASOUND RENAL CLINICAL INFORMATION: 72-year-old female with acute on chronic kidney disease. Right upper quadrant pain/burning. COMPARISON: CT abdomen pelvis 06/01/2018 TECHNIQUE: Real-time imaging of the abdominal viscera. FINDINGS: PANCREAS: Visualized portions of the pancreas are normal in appearance. ABDOMINAL AORTA: The proximal segment is normal in caliber. INFERIOR VENA CAVA: Visualized portions are normal. LIVER: The liver demonstrates normal size and contour. Diffusely increased liver echogenicity. No focal lesions. No intrahepatic biliary duct dilatation. GALLBLADDER: The gallbladder is physiologically distended. Gallstones are present. The gallbladder wall is thickened. There is pericholecystic fluid in addition to fluid within the gallbladder wall. Sonographic Mclain sign was not elicited. COMMON BILE DUCT: Normal in caliber measuring 0.3 cm in diameter. RIGHT KIDNEY: The right kidney measures 9.3 x 4.4 x 4.4 cm in maximum dimension. There is overall increased echogenicity of the right kidney, although, the cortex is relatively well-maintained. No renal calculi or hydronephrosis is visualized. A 2 cm upper pole cyst and 1.5 cm lower pole cyst are present. LEFT KIDNEY: The left kidney measures 8.9 x 5.3 x 4.1 cm in maximum dimension. There is overall increased echogenicity of the left kidney with mild diffuse cortical thinning. No renal calculi or hydronephrosis. A few cysts of the left kidney are visualized, the largest of which measures 2.2 cm. BLADDER: The bladder is well-distended. No focal bladder wall thickening or gross bladder abnormality. Bilateral ureteral jets visualized. Prevoid volume 239 mL. No appreciable post void bladder residual. FREE FLUID: None. IMPRESSION: 1. Cholelithiasis. Gallbladder wall thickening is present with fluid within the gallbladder wall in addition to pericholecystic fluid. A sonographic Mclain's sign however was not elicited. These findings may represent acute cholecystitis. Clinical correlation recommended. 2. Diffusely increased liver echogenicity. This is a nonspecific finding but most suggestive of hepatic steatosis. Clinical correlation recommended. 3. Both kidneys demonstrate diffusely increased echogenicity and there is mild cortical thinning of the left kidney. These findings are consistent with chronic renal disease. 4. Bilateral renal cysts. No renal calculi or hydronephrosis.
[2018-06-02 15:00] VITALS: BP 140/70
--- NOTE | 2018-06-02 15:25 | Cons- General Surgery ---
Joanie Sheffield 06/02/18 1525: General Information and HPI Consulting Request Date of Consult: 06/02/18 Requested By: Etta Justin MD Reason for Consult: abdominal pain, ?acute cholecystitis Source of Information: patient Exam Limitations: no limitations History of Present Illness: This is a 72 year old female with history of iddm, hld, who presented to the ED hypertensive yesterday in the 200s/100s range, admitted to telemetry to for hypertensive urgency. CT scan in the ED showed cholelithiasis with questionable gallbladder wall thickening. Due to her reported atypical chest pain, she had a limited abdominal ultrasound study today that confirmed cholelithasis with wall thickening in addition to pericholecystitic fluids (but without murphys sign). She is currently npo, going for HIDA scan study. Allergies/Medications Allergies: Coded Allergies: No Known Allergies (06/01/18) Current Medications: Current Medications Sig/Enrike Start time Last Medication Dose Route Stop Time Status Admin Acetaminophen 650 MG Q6P PRN 06/02 0045 AC 06/02 PO 1128 Acetaminophen 1,000 MG Q6P PRN 06/02 0045 IV Dextrose/Sodium 1,000 ML .[id number] 06/02 0045 VA 06/02 Chloride IV 0115 Heparin Sodium 5,000 UNIT Q8 06/02 0600 06/02 (Porcine) CA 1424 Hydromorphone HCl 0 .STK-MED ONE 06/02 0107 DC .ROUTE Hydromorphone HCl 0.5 MG Q6-PRN PRN 06/02 0045 DC 06/02 IV 0115 Insulin Detemir 16 UNITS DAILY 06/02 0900 06/02 SC 0913 Insulin Human Regular 0 .STK-MED ONE 06/02 0114 DC .ROUTE Insulin Human Regular 0 Q6 06/02 0042 06/02 SC 1242 Magnesium Oxide 400 MG ONE ONE 06/02 0745 DC 06/02 PO 06/02 0746 0913 Metoclopramide HCl 0 .STK-MED ONE 06/01 2040 DC .ROUTE Metoclopramide HCl 10 MG ONCE ONE 06/01 2030 DC 06/01 IV 06/01 Morphine Sulfate 4 MG ONCE ONE 06/01 1900 DC 06/01 IV 06/01 190 1853 Morphine Sulfate 0 .STK-MED ONE 06/01 1852 DC .ROUTE Ondansetron HCl 0 .STK-MED ONE 06/02 0109 DC .ROUTE Ondansetron HCl 4 MG Q8P PRN 06/02 0045 AC 06/02 IV 0115 Ondansetron HCl 0 .STK-MED ONE 06/01 1637 DC .ROUTE Ondansetron HCl 4 MG ONCE ONE 06/01 1630 DC 06/01 IV 06/01 1631 1636 Polyethylene Glycol 17 GM AT BEDTIME PRN 06/02 0045 AC PO Pravastatin Sodium 20 MG DAILY 06/02 0900 AC 06/02 PO 0913 Senna/Docusate Sodium 1 TAB AT BEDTIME PRN 06/02 0200 AC PO Sodium Chloride 1,000 ML Q13H 06/02 1415 AC 06/02 IV 1425 Sodium Chloride 1,000 ML BOLUS ONE 06/01 1730 DC 06/01 IV 06/01 1829 1731 Sodium Chloride 1,000 ML ONCE ONE 06/01 1700 CAN IV 06/01 1701 Sodium Chloride See Dose ONCE ONE 06/01 1700 CAN Insts (1) IV 06/01 1701 Sodium Chloride 1,000 ML ONCE ONE 06/01 1700 CAN IV 06/01 1701 Sodium Chloride 1,000 ML BOLUS ONE 06/01 1700 DC 06/01 IV 06/01 1759 1645 Sodium Chloride 1,000 ML ONCE ONE 06/01 1645 CAN IV 06/01 1646 Dose Instructions: (1)Sodium Chloride: BOLUS Past History Medical History Neurological: NONE EENT: BILATERAL CATARACTS Cardiovascular: NONE Respiratory: NONE Gastrointestinal: NONE Hepatic: NONE Renal: NONE Musculoskeletal: NONE Psychiatric: NONE Endocrine: diabetes, THYROID NODULES Blood Disorders: NONE Cancer(s): NONE Surgical History Pertinent Surgical History: non-contributory Family History Relations & Conditions If Any: FATHER FH: colon cancer Psychosocial History Where Do You Live? 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 Review of Systems Review of Systems: admits: abdominal pain, nausea, headache denies: chest pain, shortness of breath, fevers/chills, fatigue, unintentional weight loss, gerd Exam & Diagnostic Data Vital Signs and I&O Vital Signs Date Time Temp Pulse Resp B/P B/P Pulse O2 O2 Flow FiO2 Mean Ox Delivery Rate 06/02 1500 97.6 70 20 140/70 95 Room Air 06/02 0645 98.5 75 20 144/82 93 06/01 2320 99.1 95 17 148/72 95 06/01 2234 98.8 105 20 158/82 96 Room Air 06/01 1936 190/84 06/01 1840 98.8 105 20 210/90 97 Room Air 06/01 1635 95 188/102 06/01 1607 97.8 105 18 205/105 95 Room Air Room Air Intake & Output 06/02 1600 06/02 0800 06/02 0000 06/01 1600 06/01 0800 06/01 0000 Intake Total 600 Output Total 500 Balance 100 Intake, IV 600 Output, Urine 500 Patient 181 lb Weight Physical Exam: PE (as per medical student Kasie) Gen: well-appearing elderly female, laying at bedside by family, nad, aox4 CV: RRR, s1/s2 crisp, no m/r/g Resp: good air movement, clear b/l Abd: Mildly distended, hypoactive, non-tender in 4 quadrant, no rebound, no guarding Back: no CVA tenderness, no ecchymosis Ext: motor and sensation in LE grossly intact b/l, no pitting edema, +3 p.tib pulses b/l Last 24 Hours of Labs: Laboratory Tests 06/02 06/02 06/01 0735 0155 2311 Chemistry Sodium (137 - 145 mmol/L) 137 Potassium (3.5 - 5.1 mmol/L) 4.0 Chloride (98 - 107 mmol/L) 105 Carbon Dioxide (22 - 30 mmol/L) 23 Anion Gap (5 - 16) 9 BUN (7 - 17 mg/dL) 41 H Creatinine (0.5 - 1.0 mg/dL) 2.4 H Estimated GFR (>60 ml/min) 20 L BUN/Creatinine Ratio (7 - 25 %) 17.1 Hemoglobin A1c (4.2 - 5.8 %) 9.0 H Lactic Acid Cancelled Magnesium (1.6 - 2.3 mg/dL) 1.9 Troponin I (< 0.11 ng/ml) 0.02 0.03 Coagulation PT (9.4 - 12.5 SEC) 12.0 INR (0.90 - 1.19) 1.10 APTT (25 - 37 SEC) 22 L Hematology CBC w Diff NO MAN DIFF REQ WBC (4.8 - 10.8 /CUMM) 12.5 H RBC (4.20 - 5.40 /CUMM) 4.35 Hgb (12.0 - 16.0 G/DL) 12.1 Hct (37 - 47 %) 35.7 L MCV (81.0 - 99.0 FL) 81.9 MCH (27.0 - 31.0 PG) 27.9 MCHC (33.0 - 37.0 G/DL) 34.0 RDW (11.5 - 14.5 %) 14.6 H Plt Count (130 - 400 /CUMM) 238 MPV (7.4 - 10.4 FL) 7.9 Gran % (42.2 - 75.2 %) 75.1 Lymphocytes % (20.5 - 51.1 %) 16.3 L Monocytes % (1.7 - 9.3 %) 7.8 Eosinophils % (0 - 5 %) 0.5 Basophils % (0.0 - 2.0 %) 0.3 Absolute Granulocytes (1.4 - 6.5 /CUMM) 9.4 H Absolute Lymphocytes (1.2 - 3.4 /CUMM) 2.0 Absolute Monocytes (0.10 - 0.60 /CUMM) 1.0 H Absolute Eosinophils (0.0 - 0.7 /CUMM) 0.1 Absolute Basophils (0.0 - 0.2 /CUMM) 0 06/01 190 Chemistry Lactic Acid (0.7 - 2.1 mmol/L) 1.8 Troponin I (< 0.11 ng/ml) 0.02 Urines Urinalysis MOD H Urine Color (YEL,AMB,STR) YEL Urine Clarity (CLEAR) CLEAR Urine pH (5.0 - 8.0) 6.5 Ur Specific [place] (1.001 - 1.035) 1.025 Urine Protein (NEG,<30 MG/DL) >=300 H Urine Ketones (NEG) NEG Urine Nitrite (NEG) NEG Urine Bilirubin (NEG) NEG Urine Urobilinogen (0.1 - 1.0 EU/dl) 0.2 Ur Leukocyte Esterase (NEG) NEG Ur Microscopic SEDIMENT EXAMINED Urine RBC (0 - 5 /HPF) 3-5 Urine WBC (0 - 2 /HPF) RARE Ur Epithelial Cells (NONE,FEW) FEW Urine Bacteria (NEG/NONE) FEW H Hyaline Casts (0/LPF) 10-15 H Granular Casts (NONE /LPF) RARE H Urine Mucus (FEW,NONE) FEW Urine Hemoglobin (NEG) MOD H Urine Osmolality (300 - 1000 MOSM/KG) 524 Ur Random Creatinine (mg/dL) 49.5 Ur Random Sodium (30 - 90 mmol/L) 108 H Ur Random Potassium (mmol/L) 47.4 Fraction Sodium Excret (<1% %) 4.0 H Urine Glucose (N MG/DL) >=1000 H 06/01 1608 Chemistry Sodium (137 - 145 mmol/L) 132 L Potassium (3.5 - 5.1 mmol/L) 5.3 H Chloride (98 - 107 mmol/L) 97 L Carbon Dioxide (22 - 30 mmol/L) 19 L Anion Gap (5 - 16) 16 BUN (7 - 17 mg/dL) 38 H Creatinine (0.5 - 1.0 mg/dL) 2.4 H Estimated GFR (>60 ml/min) 20 L BUN/Creatinine Ratio (7 - 25 %) 15.8 Glucose (65 - 99 mg/dL) 485 H Lactic Acid (0.7 - 2.1 mmol/L) 3.8 H Calcium (8.4 - 10.2 mg/dL) 9.4 Phosphorus (2.5 - 4.5 mg/dL) 3.4 Magnesium (1.6 - 2.3 mg/dL) 1.7 Total Bilirubin (0.2 - 1.3 mg/dL) 1.0 AST (14 - 36 U/L) 24 ALT (9 - 52 U/L) 32 Alkaline Phosphatase (<127 U/L) 94 Troponin I (< 0.11 ng/ml) < 0.01 Total Protein (6.3 - 8.2 g/dL) 7.6 Albumin (3.5 - 5.0 g/dL) 4.2 Globulin (1.9 - 4.2 gm/dL) 3.4 Albumin/Globulin Ratio (1.1 - 2.2 %) 1.2 Lipase (23 - 300 U/L) 246 Hematology CBC w Diff NO MAN DIFF REQ WBC (4.8 - 10.8 /CUMM) 13.8 H RBC (4.20 - 5.40 /CUMM) 5.26 Hgb (12.0 - 16.0 G/DL) 14.1 Hct (37 - 47 %) 43.2 MCV (81.0 - 99.0 FL) 82.1 MCH (27.0 - 31.0 PG) 26.8 L MCHC (33.0 - 37.0 G/DL) 32.6 L RDW (11.5 - 14.5 %) 14.2 Plt Count (130 - 400 /CUMM) 281 MPV (7.4 - 10.4 FL) 7.6 Gran % (42.2 - 75.2 %) 89.2 H Lymphocytes % (20.5 - 51.1 %) 6.9 L Monocytes % (1.7 - 9.3 %) 3.8 Eosinophils % (0 - 5 %) 0.1 Basophils % (0.0 - 2.0 %) 0 Absolute Granulocytes (1.4 - 6.5 /CUMM) 12.3 H Absolute Lymphocytes (1.2 - 3.4 /CUMM) 1.0 L Absolute Monocytes (0.10 - 0.60 /CUMM) 0.5 Absolute Eosinophils (0.0 - 0.7 /CUMM) 0 Absolute Basophils (0.0 - 0.2 /CUMM) 0 Imaging Results: EXAM TYPE: CAT - CT ABD & PELVIS W/O IV CONTRAS EXAMINATION: CT ABDOMEN AND PELVIS WITHOUT CONTRAST CLINICAL INFORMATION: Epigastric abdominal pain COMPARISON: None TECHNIQUE: Multidetector volumetric imaging was performed from the superior aspect of the liver through the pubic symphysis. Sagittal and coronal reformatted images were obtained on the technologist's workstation. DLP: 448.53 mGy-cm FINDINGS: LUNG BASES: The visualized lung bases are unremarkable. LIVER, GALLBLADDER, AND BILIARY TREE: Diffusely decreased attenuation of the hepatic parenchyma. The liver is normal in size and contour. Cholelithiasis. No pericholecystic inflammatory changes. The gallbladder is physiologically distended. Possible gallbladder wall thickening. No pericholecystic fluid definitively seen. PANCREAS: Unremarkable. SPLEEN: Unremarkable. ADRENAL GLANDS: Unremarkable. KIDNEYS AND URETERS: 2.3 cm hypodensity of the mid to lower lateral cortex of the right kidney measuring internal attenuation of 15 Hounsfield units. 1.6 cm hypodense lesion exophytic off the posterior lower pole cortex of the left kidney measuring internal attenuation of 13 Hounsfield units. 2.1 cm hypodensity exophytic off the interpolar cortex of the left kidney measuring internal attenuation of 11 Hounsfield units. Bilobed 3.3 x 2.5 cm hypodensity within the right lower posterolateral cortex of the left kidney measuring internal attenuation of 16 Hounsfield units. No evidence of hydronephrosis or perinephric stranding bilaterally. No renal calculi identified bilaterally. BLADDER: Unremarkable. GASTROINTESTINAL TRACT: Most of the colon is decompressed. The appendix is unremarkable. No evidence of bowel obstruction or perforation. No intraperitoneal free air. ABDOMINAL WALL: No significant hernia is appreciated. LYMPH NODES: No lymphadenopathy within the abdomen or pelvis by CT criteria. VASCULAR: No abdominal aortic aneurysm. PELVIC VISCERA: Unremarkable. OSSEOUS STRUCTURES: Multilevel degenerative changes of the spine. IMPRESSION: 1. No evidence of acute abnormality within the abdomen or pelvis. 2. Cholelithiasis. The gallbladder may have a slightly thickened wall, however there is no pericholecystic fluid or pericholecystic inflammatory changes. Furthermore, the gallbladder is not distended. This CT evidence does not favor acute cholecystitis. Correlation with right upper quadrant ultrasound as well as clinical presentation is recommended. In the absence of acute tenderness over the gallbladder, this may represent subclinical chronic cholecystitis. 3. Hypodense lesions within the renal cortices bilaterally. Evaluation of the kidneys is significantly limited without IV contrast. These most likely represent renal cysts and can be confirmed with renal ultrasound. 4. Diffusely decreased attenuation of the hepatic parenchyma, a nonspecific finding but most commonly on the basis of diffuse hepatocellular disease such as hepatic steatosis. DICTATED BY: Wendy Ac MD DATE/TIME DICTATED:06/01/181758 CONTINUOUS IMPROVEMENT COACH:MARI DATE/TIME TRANSCRIBED:06/01/181758 Other Results: EXAM TYPE: US - US-LIMITED ABDOMEN; US-RENAL/KIDNEY EXAMINATION: 1. US ABDOMEN LIMITED (RIGHT UPPER QUADRANT) 2. ULTRASOUND RENAL CLINICAL INFORMATION: 72-year-old female with acute on chronic kidney disease. Right upper quadrant pain/burning. COMPARISON: CT abdomen pelvis 06/01/2018 TECHNIQUE: Real-time imaging of the abdominal viscera. FINDINGS: PANCREAS: Visualized portions of the pancreas are normal in appearance. ABDOMINAL AORTA: The proximal segment is normal in caliber. INFERIOR VENA CAVA: Visualized portions are normal. Assessment/Plan Assessment/Plan This 72 year old female with history of iddm, hld, was admitted to telemetry due to hypertensive urgency in setting atypical chest pain, with evidence of cholelithiasis and questionable acute cholecystitis currently npo / ivf pain medication as needed serial troponins negative x 4 f/u hida scan serial exams hep sc - dvt ppx f/u labs will d/w Consult Acknowledgment - Thank you for your consult request. [place] Brian GAMINO 06/03/18 8172: General Information and HPI Allergies/Medications Home Med List: Ergocalciferol (Vitamin D2) (Vitamin D2) 50,000 UNIT CAPSULE 1 CAP PO Q 2 WEEKS VITAMIN D DEFICIENCY (Reported) Glipizide 10 MG TABLET 1 TAB PO BID DIABETES (Reported) Insulin Detemir (Levemir Flextouch) 100 UNIT/ML (3 ML) INSULN.PEN 16 UNIT SC DAILY DIABETES (Reported) Lisinopril 10 MG TABLET 1 TAB PO DAILY blood pressure Metoprolol Succ XL (Toprol XL) 25 MG TAB 1 TAB PO DAILY BLOOD PRESSURE Pravastatin Sodium 20 MG TABLET 1 TAB PO DAILY HEART (Reported) Assessment/Plan Consult Acknowledgment - Thank you for your consult request. Attending MD Review Statement Attending Statement Attending MD Statement: examined this patient, discuss w/resident/PA/INSOLE FILLER, agreed w/resident/PA/INSOLE FILLER, discussed with family, reviewed EMR data (avail), reviewed images Attending Assessment/Plan: Patient seen and examined, agree with above. Patient presented withe atypical chest pain, TANIA, and hypertensive. Found to have gallstones with a non-filling gallbladder on the HIDA. Patient denies pain at this time and is not nauseaous, she is hungry. AVSS. Abd soft NT/ND. Labs ok. Mary Jo shows gallstones with a very thick wall (?chronic) and HIDA did not fill gallbladder. Patient clinically does not seem to have cholecystitis as she has no pain and is eating. She is also refusing surgery at this time which I think is appropriate. Need to get her DM better controlled and further determine extent of the TANIA prior to surgery. Advised a low-fat diet and F/U as outptient. Can consider PO Abx outpatient.
--- NOTE | 2018-06-02 18:22 | NUCLEAR MEDICINE REPORT ---
EXAMINATION: BILIARY TRACT IMAGING STUDY CLINICAL INFORMATION: Epigastric pain. Ultrasound showed pericholecystic fluid.. COMPARISON: No previous biliary scan is available for comparison. Abdominal ultrasound dated 06/02/2018 is available for comparison.. TECHNIQUE: Serial gamma scintillation camera images were obtained over the abdomen for a total observation period of 120 minutes following the intravenous administration of 5.3 mCi Tc-99m Choletec. FINDINGS: There is good concentration of activity in the liver by 5 minutes post injection. Biliary activity is visualized by 10 minutes. Small bowel is well visualized by 15 minutes. The gallbladder is not well visualized at any time during the study. At the end of the study diffuse small bowel activity is visualized and there is complete clearance of activity from the liver. IMPRESSION: Nonvisualization of the gallbladder is evidence of an obstructed cystic duct and strong evidence to suggest the diagnosis of acute cholecystitis. However, this can also be seen in chronic cholecystitis. The common bile duct is patent. Liver function appears normal.
[2018-06-02 21:51] VITALS: BP 150/80
[2018-06-03 06:52] VITALS: BP 160/84
--- NOTE | 2018-06-03 07:38 | PN- Housestaff ---
Caroline Farfan 06/03/18 0738: Subjective Follow-up For: Atypical chest pain Cholelithiasis Hypertensive urgency Diabetes Mellitus Subjective: Afebrile overnight. Patient is seen and examined this morning. Patient reports no active abdominal pain today. Patient also denies any nausea, vomiting, diarrhea, and constipation. Patient had an RUQ U/S and HIDA scan follow up to assess for cholecystitis yesterday, which resulted in findings concerning for gallbladder pathology. Patient however states she does not want to proceed with any surgical intervention. We will follow up with surgical recommendations. Patient further denies any chest pain, palpitations, and shortness of breath. Review of Systems Constitutional: Reports: see HPI. Objective Last 24 Hrs of Vital Signs/I&O Vital Signs Date Time Temp Pulse Resp B/P B/P Pulse O2 O2 Flow FiO2 Mean Ox Delivery Rate 06/03 0652 98.5 97 20 160/84 93 Room Air 06/02 2151 99.0 100 18 150/80 96 Room Air 06/02 1500 97.6 70 20 140/70 95 Room Air Intake & Output 06/03 1600 06/03 0800 06/03 0000 Intake Total 600 Output Total Balance 600 Intake, IV 600 Patient 182 lb 184 lb Weight Weight Bed scale Measurement Method Physical Exam General Appearance: Alert, Oriented X3, Cooperative, No Acute Distress Skin: No Rashes, No Breakdown Skin Temp/Moisture Exam: Warm/Dry HEENT: Atraumatic Neck: Supple, No JVD Cardiovascular: Regular Rate, Normal S1, Normal S2 Lungs: Clear to Auscultation Abdomen: Soft, No Tenderness Neurological: Normal Speech Extremities: No Edema Assessment/Plan Assessment: US RUQ and Renal - 1. Cholelithiasis. Gallbladder wall thickening is present with fluid within the gallbladder wall in addition to pericholecystic fluid. A sonographic Mclain's sign however was not elicited. These findings may represent acute cholecystitis. Clinical correlation recommended. 2. Diffusely increased liver echogenicity. This is a nonspecific finding but most suggestive of hepatic steatosis. Clinical correlation recommended. 3. Both kidneys demonstrate diffusely increased echogenicity and there is mild cortical thinning of the left kidney. These findings are consistent with chronic renal disease. 4. Bilateral renal cysts. No renal calculi or hydronephrosis. 72 year old diabetic female presenting with hypertensive urgency, nausea, vomiting and TANIA on CKD, with epigastric pain concerning for atypical chest pain. Patient admitted to telemetry floor for the following reasons: #Atypical chest pain, likely GI related -Epigastric pain with associated n/v -Serial EKG and troponins; normal levels x4 readings -RUQ ultrasound for concern of cholecystitis; image findings showed gallbladder wall thickening with fluid within the gallbladder wall in addition to pericholecystic fluid; sonographic Mclain's sign was not elicited -1/2 NS IV 75mL/hr -Zofran 4mg IV Q8p for nausea/vomiting -Acetaminophen IV for pain control -HIDA scan, follow up -Consulted surgery, awaiting recs from surgical PA and Dr. Tomas; patient does not want to proceed with surgery at this time #Hypertensive Urgency -Blood pressure on admission 205/105 -No home blood pressure medications -Started on Lisinopril 10 mg qd and Metoprolol 12.5 mg bid -Consulted cardiology -Continue to monitor BP #Diabetes mellitus, with CKD Stage III -Insulin, sliding scale -AccuChecks -Levemir insulin 16 units qd -Renal Ultrasound with findings consistent with chronic renal disease; notably diffusely increased echogenicity and there is mild cortical thinning of the left kidney Diet: NPO ALPS & Heparin DVT PPx Code Status: DNR/DNI Problem List: 1. TANIA (acute kidney injury) 2. Cholelithiasis 3. Hyperglycemia Pain Ratin Pain Location: na Pain Goal: Remain pain free Pain Plan: na Tomorrow's Labs & Rationales: routine Etta Justin MD 06/03/18 1155: Attending MD Review Statement Attending Statement Attending MD Statement: examined this patient, discuss w/resident/PA/SCHEDULING SPECIALIST, agreed w/resident/PA/SCHEDULING SPECIALIST, reviewed EMR data (avail) Attending Assessment/Plan: 72F PMH HTN, HLD admitted with nausea, vomiting and epigastric pain, found to have elevated lactate, acute on chronic kidney injury. She was in hypertensive urgency initially but this has improved. Abdominal pain has improved and appetite has returned. RUQ U/S shows signs of cholecystitis. No telemetry events, EKG NSR. HIDA scan positive for obstruction. Discussed with patient and she does not desire surgery at this time, but will think about it as an outpatient. 1. Cholecystitis 2. Acute on CKD stage 3 3. Lactic acidosis 4. Atypical chest pain Plan - Continue on telemetry - Follow surgery recommendations - Hold off on antibiotics for now - Gentle IV hydration - Continue anti-hypertensives - DVT PPx - Anticipated discharge today or tomorrow pending surgical recommendations and renal function
[2018-06-03 08:38] LABS: ABSOLUTE BASOPHIL COUNT 0 /CUMM (0.0-0.2); ABSOLUTE EOSINOPHIL COUNT 0.1 /CUMM (0.0-0.7); ABSOLUTE GRANULOCYTE CT 8.6 /CUMM (1.4-6.5); ABSOLUTE LYMPH COUNT 1.5 /CUMM (1.2-3.4); ABSOLUTE MONOCYTE COUNT 0.8 /CUMM (0.10-0.60); BASOPHIL % 0.3 % (0.0-2.0); EOSINOPHIL % 0.5 % (0-5); GRANULOCYTE % 78.2 % (42.2-75.2); MEAN CORPUSCULAR HGB 27.5 PG (27.0-31.0); MEAN CORPUSCULAR HGB CONC 33.5 G/DL (33.0-37.0); MEAN CORPUSCULAR VOLUME 82.1 FL (81.0-99.0); MEAN PLATELET VOLUME 8.1 FL (7.4-10.4); PLATELET COUNT 208 /CUMM (130-400); RBC DISTRIBUTION WIDTH 14.3 % (11.5-14.5); RED BLOOD CELL CT 4.26 /CUMM (4.20-5.40)
--- NOTE | 2018-06-03 10:03 | Patient Discharge Instructions ---
Discharge Instructions General Discharge Information You were seen/treated for: Epigastric Abdominal pain Diabetes Mellitus TANIA on CKD Stage III You had these procedures: RUQ Ultrasound HIDA Watch for these problems: If you experience any worsening abdominal pain, nausea, vomiting, and/or fevers please follow up with your PCP. Special Instructions: Please follow up with your PCP within one week. Please follow up with the General Surgeon if you have recurrent abdominal pains. Please continue to take your home medications. Diet Continue normal diet: No Recommended Diet: Diabetic Activity Full Activity/No Limits: No Activity Self Limited: Yes Acute Coronary Syndrome Inclusion Criteria At DC or during hospital stay patient has or had the following: ACS DIAGNOSIS No Discharge Core Measures Meds if any: Prescribed or Continued at Discharge Meds if any: NOT Prescribed or Continued at Discharge Congestive Heart Failure Inclusion Criteria At DC or during hospital stay patient has or had the following: CHF DIAGNOSIS No Discharge Core Measures Meds if any: Prescribed or Continued at Discharge Meds if any: NOT Prescribed or Continued at Discharge Cerebrovascular accident Inclusion Criteria At DC or during hospital stay patient has or had the following: CVA/TIA Diagnosis No Discharge Core Measures Meds if any: Prescribed or Continued at Discharge Meds if any: NOT Prescribed or Continued at Discharge Venous thromboembolism Inclusion Criteria VTE Diagnosis No VTE Type NONE VTE Confirmed by (Test) NONE Discharge Core Measures - Per Current guidelines, there needs to be overlap - treatment for the first 5 days of Warfarin therapy. - If discharged on Warfarin prior to 5 days of - overlap therapy, the patient will need to be - assessed for post discharge needs including - *Post discharge parental anticoagulation - *Warfarin and/or parental anticoagulation education - *Follow up date to check INR post discharge At least 5 days overlap therapy as Inpatient No Meds if any: Prescribed or Continued at Discharge Note: Overlap Therapy is Warfarin and Anticoagulant Meds if any: NOT Prescribed or Continued at Discharge
--- NOTE | 2018-06-03 11:08 | PN- Student ---
Subjective Subjective: Patient was seen and examined this am. Pt was afebrile with elevated BP, 160/84. Pt was alert and cooperative. She denies nausea, vomiting, abdominal pain. Reports headache, 4/10, since admission that responds to tylenol. Denies photophobia, phonophobia, lacrimation, rhinorrhea. Pt was NPO this am, but diet was advanced. Review of Systems Review of Systems Constitutional: Denies: chills, diaphoresis, fever. EENTM: Denies: visual changes. Cardiovascular: Denies: chest pain, edema, orthopena, palpitations. Respiratory: Denies: cough, short of breath. GI: Denies: abdominal pain, constipation, diarrhea, nausea, vomiting. Genitourinary: Denies: dysuria, frequency. Objective Objective: Current Medications Sig/Enrike Start time Last Medication Dose Stop Time Status Admin Acetaminophen 650 MG Q6P PRN 06/02 0045 AC 06/03 (Tylenol) 0418 Acetaminophen 1,000 MG Q6P PRN 06/02 0045 AC (Ofirmev) Heparin Sodium 5,000 UNIT Q8 06/02 0600 AC 06/03 (Porcine) 0554 Insulin Detemir 16 UNITS DAILY 06/02 09 AC 06/03 (Levemir) 1009 Insulin Human Regular 0 Q6 06/02 0042 AC 06/03 (NovoLIN R) 0604 Ondansetron HCl 4 MG Q8P PRN 06/02 0045 AC 06/02 (Zofran) 0115 Polyethylene Glycol 17 GM AT BEDTIME PRN 06/02 0045 AC (Miralax) Pravastatin Sodium 20 MG DAILY 06/02 0900 AC 06/03 (Pravachol) 1009 Senna/Docusate Sodium 1 TAB AT BEDTIME PRN 06/02 0200 AC (Senokot S) Sodium Chloride 1,000 ML Q13H 06/02 1415 AC 06/03 (Half Normal Saline) 0554 Results Results: Laboratory Tests 06/03/18 0650: Anion Gap 10, Estimated GFR 22 L, BUN/Creatinine Ratio 15.9, CBC w Diff NO MAN DIFF REQ, RBC 4.26, MCV 82.1, MCH 27.5, MCHC 33.5, RDW 14.3, MPV 8.1, Gran % 78.2 H, Lymphocytes % 13.7 L, Monocytes % 7.3, Eosinophils % 0.5, Basophils % 0.3, Absolute Granulocytes 8.6 H, Absolute Lymphocytes 1.5, Absolute Monocytes 0.8 H, Absolute Eosinophils 0.1, Absolute Basophils 0 06/02/18 0735: Anion Gap 9, Estimated GFR 20 L, BUN/Creatinine Ratio 17.1, Hemoglobin A1c 9.0 H, Magnesium 1.9, Troponin I 0.02, PT 12.0, INR 1.10, APTT 22 L, CBC w Diff NO MAN DIFF REQ, RBC 4.35, MCV 81.9, MCH 27.9, MCHC 34.0, RDW 14.6 H, MPV 7.9, Gran % 75.1, Lymphocytes % 16.3 L, Monocytes % 7.8, Eosinophils % 0.5, Basophils % 0.3, Absolute Granulocytes 9.4 H, Absolute Lymphocytes 2.0, Absolute Monocytes 1.0 H, Absolute Eosinophils 0.1, Absolute Basophils 0 06/02/18 0155: Troponin I 0.03 06/01/18 2311: Lactic Acid Cancelled 06/01/182022: Urinalysis MOD H, Urine Color YEL, Urine Clarity CLEAR, Urine pH 6.5, Ur Specific [place] 1.025, Urine Protein >=300 H, Urine Ketones NEG, Urine Nitrite NEG, Urine Bilirubin NEG, Urine Urobilinogen 0.2, Ur Leukocyte Esterase NEG, Ur Microscopic SEDIMENT EXAMINED, Urine RBC 3-5, Urine WBC RARE, Ur Epithelial Cells FEW, Urine Bacteria FEW H, Hyaline Casts 10-15 H, Granular Casts RARE H , Urine Mucus FEW, Urine Hemoglobin MOD H, Urine Glucose >=1000 H 06/01/182022: Lactic Acid 1.8, Urine Osmolality 524, Ur Random Creatinine 49.5, Ur Random Sodium 108 H, Ur Random Potassium 47.4, Fraction Sodium Excret 4.0 H 06/01/18 1900: Troponin I 0.02 06/01/18 1608: Anion Gap 16, Estimated GFR 20 L, BUN/Creatinine Ratio 15.8, Glucose 485 H, Lactic Acid 3.8 H, Calcium 9.4, Phosphorus 3.4, Magnesium 1.7, Total Bilirubin 1.0, AST 24, ALT 32, Alkaline Phosphatase 94, Troponin I < 0.01, Total Protein 7.6, Albumin 4.2, Globulin 3.4, Albumin/Globulin Ratio 1.2, Lipase 246, CBC w Diff NO MAN DIFF REQ, RBC 5.26, MCV 82.1, MCH 26.8 L, MCHC 32.6 L, RDW 14.2, MPV 7.6, Gran % 89.2 H, Lymphocytes % 6.9 L, Monocytes % 3.8, Eosinophils % 0.1, Basophils % 0, Absolute Granulocytes 12.3 H, Absolute Lymphocytes 1.0 L, Absolute Monocytes 0.5, Absolute Eosinophils 0, Absolute Basophils 0 Microbiology 06/01 2032 URINE ROUT: Urine Culture - COMP PHYSICAL EXAM Last 24hrs of Vital Signs Vital Signs Date Time Temp Pulse Resp B/P B/P Pulse O2 O2 Flow FiO2 Mean Ox Delivery Rate 06/03 0652 98.5 97 20 160/84 93 Room Air 06/02 2151 99.0 100 18 150/80 96 Room Air 06/02 1500 97.6 70 20 140/70 95 Room Air Physical Exam General Appearance Alert, Cooperative, No Acute Distress HEENT Atraumatic Cardiovascular Regular Rate, Normal S1, Normal S2, No Murmurs Lungs Clear to Auscultation, Normal Air Movement Abdomen Normal Bowel Sounds, Soft, No Tenderness Extremities No Clubbing, No Cyanosis, Normal Pulses Assessment/Plan Assessment: Pt is a 72yo F with a PMH of diabetes mellitus and CKD stage III, presenting with hypertensive urgency, nausea/vomiting and epigastric pain for past two days , and TANIA. Pt does not recall any specific triggers for nausea and vomiting, reports vomit as bilious and brown, but nonbloody. Reports ongoing hiccups since onset of nausea and vomiting. Denies fevers, chills, night sweats. Reports fatigue and lack of sleep for the past two days. Reports headache since admission, 12/24, controlled with tylenol. On PE, lungs were clear to auscultation, normal RRR, no chest wall tenderness, 1+ pitting edema. Pt reports occasional leg swelling. There was no tenderness of palpation of abdomen, no guarding, no rebound. Negative Mclain's sign. Hypoactive bowel sounds in all 4 quadrants. Patient is afebrile, elevated BP, 160/84. Pt is not on any home hypertension medications. Pt was NPO on D5NS @ 75ml/hr for RUQ ultrasound, today diet was advanced. Labs show leukocytosis (11.0). Abdominal CT showed subclinical chronic cholecystitis, ?renal cysts, ?diffuse hepatocellular disease. HIDA scan had Nonvisualization of the gallbladder is evidence of an obstructed cystic ductand strong evidence to suggest the diagnosis of acute cholecystitis. However, this can also be seen in chronic cholecystitis. The common bile duct is patent. Liver function appears normal. Plan: 1. epigastric pain - f/u surgery consult for ?acute vs chronic cholecystitis, cholelithiasis - advance diet - Zofran for nausea 2. TANIA - monitor Cr, previous Cr from Nov 2017 1.9 3. Diabetes mellitus - blood glucose on admission was 485, currently is 195 - patient reports baseline is around low 100s - continued on home dose of levemir insulin 4. continue home med: pravastatin
[2018-06-03 13:30] VITALS: BP 145/82
--- NOTE | 2018-06-03 14:27 | PN- Student ---
Kasie Walker 06/03/18 1418: Subjective Subjective: 72 yo female w/ pmhx of IDDM, htn, and hld, admitted 06/01 w/ hypertensive urgency, nausea, vomiting and TANIA on CKD, and epigastric pain. Pt on tele to r/u atypical chest pain and management of TANIA 2/2 dehydration w/ surg consult for acute cholecystitis. HIDA scan suggests acute vs chronic cholecystitis. Patient is currently sitting up in bed comfortably w/ has no complaints. Appetite is "okay" had soup, low-fat yogurt, and pineapple. Has not yet had BM or flatus. She is ambulating and voiding urine spontaneously. Pt is refusing surgical intervention and interested in more information about dietary changes she can make to prevent future episodes Denies pain, nausea, vomiting, sob, dysuria, diarrhea, feeling bloated, or dehydration. Objective Objective: PE: Gen: elderly female, sitting up in bed conversant w/ , aox4, nad CV: RRR, s1s2 present, no m/r/r appreciated Resp: good air movement, no increased work of breath, no w/r/r Abd: NABS, NDNT, no rebound or guarding Ext: Pain to palpation of calves due to perpheral neuropathy as per pt, +2 dp pulses b/l Results Results: Intake & Output 06/03 1600 06/03 0800 06/03 0000 06/02 1600 06/02 0800 06/02 0000 Intake Total 600 555 600 Output Total 500 Balance 600 555 100 Intake, IV 600 525 600 Intake, Oral 30 Output, Urine 500 Patient 182 lb 184 lb 181 lb Weight Weight Bed scale Measurement Method Laboratory Tests 06/03/18 0650: Anion Gap 10, Estimated GFR 22 L, BUN/Creatinine Ratio 15.9, CBC w Diff NO MAN DIFF REQ, RBC 4.26, MCV 82.1, MCH 27.5, MCHC 33.5, RDW 14.3, MPV 8.1, Gran % 78.2 H, Lymphocytes % 13.7 L, Monocytes % 7.3, Eosinophils % 0.5, Basophils % 0.3, Absolute Granulocytes 8.6 H, Absolute Lymphocytes 1.5, Absolute Monocytes 0.8 H, Absolute Eosinophils 0.1, Absolute Basophils 0 Laboratory Tests 06/03/18 0650: Anion Gap 10, Estimated GFR 22 L, BUN/Creatinine Ratio 15.9, CBC w Diff NO MAN DIFF REQ, RBC 4.26, MCV 82.1, MCH 27.5, MCHC 33.5, RDW 14.3, MPV 8.1, Gran % 78.2 H, Lymphocytes % 13.7 L, Monocytes % 7.3, Eosinophils % 0.5, Basophils % 0.3, Absolute Granulocytes 8.6 H, Absolute Lymphocytes 1.5, Absolute Monocytes 0.8 H, Absolute Eosinophils 0.1, Absolute Basophils 0 Vital Signs Date Time Temp Pulse Resp B/P B/P Pulse O2 O2 Flow FiO2 Mean Ox Delivery Rate 06/03 1330 89 18 145/82 94 Room Air 06/03 0652 98.5 97 20 160/84 93 Room Air Current Medications Sig/Enrike Start time Last Medication Dose Route Stop Time Status Admin Sodium Chloride 1,000 ML Q13H 06/02 1415 DC 06/03 IV 0554 Insulin Detemir 16 UNITS DAILY 06/02 0900 AC 06/03 SC 1009 Pravastatin Sodium 20 MG DAILY 06/02 0900 AC 06/03 PO 1009 Heparin Sodium 5,000 UNIT Q8 06/02 0600 AC 06/03 (Porcine) SC 1318 Senna/Docusate Sodium 1 TAB AT BEDTIME PRN 06/02 0200 AC PO Acetaminophen 650 MG Q6P PRN 06/02 0045 AC 06/03 PO 0418 Acetaminophen 1,000 MG Q6P PRN 06/02 0045 AC IV Ondansetron HCl 4 MG Q8P PRN 06/02 0045 DC 06/02 IV 0115 Polyethylene Glycol 17 GM AT BEDTIME PRN 06/02 0045 AC PO Insulin Human Regular 0 Q6 06/02 0042 AC 06/03 SC 1318 Assessment/Plan Assessment: 72 yo female w/ hx of iddm, hld, and htn was admitted to telemetry 06/01 due to hypertensive urgency in setting atypical chest pain, with evidence of cholelithiasis acute or chronic cholecystitis symptomatically resolved Plan: Pt refusing surgerical intervention, provide dietary recommendations for biliary colic ppx Cont. anti-hypertensives, and home-meds Cont. pain management ASA DVT PPx F/u w/ medicine team for clearance from cardiorenal standpoint D/c anticipated today if tania cont to resolve [facility]: Attending MD Review Statement Attending Sign Off Attending Cosign Statement: I have: examined this patient, reviewed avalbl EMR data, personally reviewd images, discussd w/resident/PA/HOT ROLLER, discussed mgmt plan w/pt, agreed w/resident/ PA/HOT ROLLER.
[2018-06-03 14:52] VITALS: BP 162/90
[2018-06-03] MEDS ORDERED: LISINOPRIL10 M1 PO (15:06)
[2018-06-03] MEDS ORDERED: TOPROL XL25 M1 PO (15:16)
--- NOTE | 2018-06-03 16:26 | Discharge Summary ---
See Addendum Visit Information Visit Dates Admission Date: 06/01/18 Discharge Date: 06/03/18 Hospital Course Course Attending Physician: Etta Justin MD Primary Care Physician: Flora ASHER,[facility] Course: 72 year old diabetic female presenting with hypertensive urgency, nausea, vomiting and TANIA on CKD, with epigastric pain concerning for atypical chest pain with associated n/v. Patient reported she started having nausea and vomiting over the past 2 days with her last episode of emesis on the morning of admission. The emergency department noted patient had Silverio's prior to her symptoms. Patient reports that she is unable to tolerate food or water. Associated symptoms include epigastric pain which she describes as a burning sensation along with hiccups. Reports that that pain travels from the epigastric region to her right and left upper quadrants. Denies any radiation to the back. Patient denies any hematemesis. Denied constipation/diarrhea. Denies dysuria/hematuria, fever/chills. Denies shortness of breath, palpitations. Reported numbness and tingling in her feet due to diabetic neuropathy that has unchanged. 1. Atypical Chest pain -Patient admitted to hospital due to atypical chest pain. Patient had serial EKG and Troponin. Patient also had nausea and vomiting. Patient had RUQ ultrasound concerning for cholecystitis with follow up HIDA scan. Consulted surgery but patient refused any surgical intervention. Patient also had episodes of hypertension. Patient started on Lisinopril 10 mg and Metorprolol 25 mg to start taking as an outpatient. Patient to be discharged and have close follow up with PCP. Allergies: Coded Allergies: No Known Allergies (06/01/18) Significant Procedures: HIDA - Nonvisualization of the gallbladder is evidence of an obstructed cystic duct and strong evidence to suggest the diagnosis of acute cholecystitis. However, this can also be seen in chronic cholecystitis. The common bile duct is patent. Liver function appears normal. US RUQ and Renal - 1. Cholelithiasis. Gallbladder wall thickening is present with fluid within the gallbladder wall in addition to pericholecystic fluid. A sonographic Mclain's sign however was not elicited. These findings may represent acute cholecystitis. Clinical correlation recommended. 2. Diffusely increased liver echogenicity. This is a nonspecific finding but most suggestive of hepatic steatosis. Clinical correlation recommended. 3. Both kidneys demonstrate diffusely increased echogenicity and there is mild cortical thinning of the left kidney. These findings are consistent with chronic renal disease. 4. Bilateral renal cysts. No renal calculi or hydronephrosis. Disposition Summary Disposition Principal Diagnosis: Atypical Chest Pain Additional Diagnosis: Hypertensive Urgency Diabetes Mellitus Hx. Discharge Disposition: home or self care Discharge Instructions General Discharge Information Code Status: Full Code Patient's Diet: diabetic diet Patient's Activity: ad bijal Follow-Up Instructions/Appts: Please follow up with your PCP within one week. Please follow up with the General Surgeon if you have recurrent abdominal pains. Please continue to take your home medications. Medications at Discharge Discharge Medications: Continue taking these medications: Glipizide (Glipizide) 10 MG TABLET 1 Tablet ORAL TWICE DAILY Comments: NOT GIVEN IN THE HOSPITAL Pravastatin Sodium (Pravastatin Sodium) 20 MG TABLET 1 Tablet ORAL DAILY Comments: Last Taken: 06/03/18 Time: 10:09 Insulin Detemir (Levemir Flextouch) 100 UNIT/ML (3 ML) INSULN.PEN 16 Unit SC DAILY Comments: Last Taken: 06/03/18 Time: 10:09 Ergocalciferol (Vitamin D2) (Vitamin D2) 50,000 UNIT CAPSULE 1 Capsule ORAL EVERY 2 WEEKS Comments: NOT GIVEN IN THE HOSPITAL Start taking the following new medications: Lisinopril (Lisinopril) 10 MG TABLET 1 Tablet ORAL DAILY Qty = 30 No Refills Comments: NOT GIVEN IN THE HOSPITAL Amlodipine Besylate (Norvasc) 5 MG TABLET 1 Tablet ORAL DAILY Qty = 30 No Refills Comments: NOT GIVEN IN THE H[facility]ITAL Copies To: Flora ASHER,Marielena Attending MD Review Statement Documenting Attending: Etta Justin MD
--- NOTE | 2018-06-03 17:46 | Cons- Cardiology ---
General Information and HPI Consulting Request Date of Consult: 06/03/18 Requested By: Etta Justin MD Reason for Consult: Possible arrhythmia History of Present Illness: The patient is a 72-year-old female with history of diabetes mellitus, diabetic nephropathy, and hypertension who presented to the hospital with abdominal discomfort and elevated blood pressure. She was found to have evidence of acute cholecystitis. She also noted chest discomfort which was felt to be atypical. She ruled out for myocardial infarction with negative troponin. She has improved clinically, and is planned for discharge today. She was noted to have what appeared to be a 12 beat run of ventricular tachycardia. On my review of the strips, however the abnormal strip appears to more likely represent artifact rather than ventricular tachycardia. No further chest pain. No palpitations. No shortness of breath. No diaphoresis. No nausea or vomiting. Allergies/Medications Allergies: Coded Allergies: No Known Allergies (06/01/18) Home Med List: Ergocalciferol (Vitamin D2) (Vitamin D2) 50,000 UNIT CAPSULE 1 CAP PO Q 2 WEEKS VITAMIN D DEFICIENCY (Reported) Glipizide 10 MG TABLET 1 TAB PO BID DIABETES (Reported) Insulin Detemir (Levemir Flextouch) 100 UNIT/ML (3 ML) INSULN.PEN 16 UNIT SC DAILY DIABETES (Reported) Lisinopril 10 MG TABLET 1 TAB PO DAILY blood pressure Metoprolol Succ XL (Toprol XL) 25 MG TAB 1 TAB PO DAILY BLOOD PRESSURE Pravastatin Sodium 20 MG TABLET 1 TAB PO DAILY HEART (Reported) Current Medications: Current Medications Sig/Enrike Start time Last Medication Dose Route Stop Time Status Admin Acetaminophen 650 MG Q6P PRN 06/02 0045 AC 06/03 PO 1712 Acetaminophen 1,000 MG Q6P PRN 06/02 0045 AC IV Heparin Sodium 5,000 UNIT Q8 06/02 0600 AC 06/03 (Porcine) SC 1318 Insulin Detemir 16 UNITS DAILY 06/02 0900 AC 06/03 SC 1009 Insulin Human Regular 0 Q6 06/02 0042 AC 06/03 SC 1318 Metoprolol Tartrate 12.5 MG BID 06/03 1515 AC PO Ondansetron HCl 4 MG Q8P PRN 06/02 0045 DC 06/02 IV 0115 Polyethylene Glycol 17 GM AT BEDTIME PRN 06/02 0045 AC PO Pravastatin Sodium 20 MG DAILY 06/02 0900 AC 06/03 PO 1009 Senna/Docusate Sodium 1 TAB AT BEDTIME PRN 06/02 0200 AC PO Sodium Chloride 1,000 ML Q13H 06/02 1415 DC 06/03 IV 0554 Review of Systems Review of Systems: No fever. No chills. No rash. No tremor. No melena. All other systems were reviewed, and were noted to be negative. Past History Travel History Traveled to [place] past 21 day No Medical History Neurological: NONE EENT: BILATERAL CATARACTS Cardiovascular: NONE Respiratory: NONE Gastrointestinal: NONE Hepatic: NONE Renal: NONE Musculoskeletal: NONE Psychiatric: NONE Endocrine: diabetes, THYROID NODULES Blood Disorders: NONE Cancer(s): NONE Surgical History Surgical History: non-contributory Family History Relations & Conditions If Any: FATHER Coronary artery bypass surgery FH: colon cancer Psychosocial History Where Do You Live? 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 Exam & Diagnostic Data Vital Signs and I&O Vital Signs Date Time Temp Pulse Resp B/P B/P Pulse O2 O2 Flow FiO2 Mean Ox Delivery Rate 06/03 1452 98.1 88 2 162/90 93 Room Air 06/03 1330 89 18 145/82 94 Room Air 06/03 0652 98.5 97 20 160/84 93 Room Air 06/02 2151 99.0 100 18 150/80 96 Room Air Intake & Output 06/03 1600 06/03 0800 06/03 0000 06/02 1600 06/02 0800 06/02 0000 Intake Total 600 555 600 Output Total 500 Balance 600 555 100 Intake, IV 600 525 600 Intake, Oral 30 Output, Urine 500 Patient 182 lb 184 lb 181 lb Weight Weight Bed scale Measurement Method Physical Exam: Gen: The patient is in no acute distress HEENT: Normal nose, ears, and oropharynx. Pupils equal bilaterally. Conjunctiva normal. Neck: Supple with no JVD, no masses, and no thyromegaly Lungs: Clear to auscultation with normal respiratory effort Heart: RRR, S1, S2, no murmurs. No peripheral edema, 2+ pulses in the lower extremities bilaterally Abdomen: Soft, nontender, no masses. No hepatomegaly. No splenomegaly Extremities: No clubbing or cyanosis. Normal muscle strength in the upper and lower extremities Skin: Normal skin turgor with no skin ulcers or lesions noted. Neuro: Cranial nerves intact. Sensation intact Psych: Alert and oriented x 3 with appropriate affect Labs/Rolo Results: Laboratory Tests 06/03 06/02 0650 0735 Chemistry Sodium (137 - 145 mmol/L) 135 L 137 Potassium (3.5 - 5.1 mmol/L) 4.0 4.0 Chloride (98 - 107 mmol/L) 104 105 Carbon Dioxide (22 - 30 mmol/L) 21 L 23 Anion Gap (5 - 16) 10 9 BUN (7 - 17 mg/dL) 35 H 41 H Creatinine (0.5 - 1.0 mg/dL) 2.2 H 2.4 H Estimated GFR (>60 ml/min) 22 L 20 L BUN/Creatinine Ratio (7 - 25 %) 15.9 17.1 Hemoglobin A1c (4.2 - 5.8 %) 9.0 H Magnesium (1.6 - 2.3 mg/dL) 1.9 Troponin I (< 0.11 ng/ml) 0.02 Coagulation PT (9.4 - 12.5 SEC) 12.0 INR (0.90 - 1.19) 1.10 APTT (25 - 37 SEC) 22 L Hematology CBC w Diff NO MAN DIFF REQ NO MAN DIFF REQ WBC (4.8 - 10.8 /CUMM) 11.0 H 12.5 H RBC (4.20 - 5.40 /CUMM) 4.26 4.35 Hgb (12.0 - 16.0 G/DL) 11.7 L 12.1 Hct (37 - 47 %) 35.0 L 35.7 L MCV (81.0 - 99.0 FL) 82.1 81.9 MCH (27.0 - 31.0 PG) 27.5 27.9 MCHC (33.0 - 37.0 G/DL) 33.5 34.0 RDW (11.5 - 14.5 %) 14.3 14.6 H Plt Count (130 - 400 /CUMM) 208 238 MPV (7.4 - 10.4 FL) 8.1 7.9 Gran % (42.2 - 75.2 %) 78.2 H 75.1 Lymphocytes % (20.5 - 51.1 %) 13.7 L 16.3 L Monocytes % (1.7 - 9.3 %) 7.3 7.8 Eosinophils % (0 - 5 %) 0.5 0.5 Basophils % (0.0 - 2.0 %) 0.3 0.3 Absolute Granulocytes (1.4 - 6.5 /CUMM) 8.6 H 9.4 H Absolute Lymphocytes (1.2 - 3.4 /CUMM) 1.5 2.0 Absolute Monocytes (0.10 - 0.60 /CUMM) 0.8 H 1.0 H Absolute Eosinophils (0.0 - 0.7 /CUMM) 0.1 0.1 Absolute Basophils (0.0 - 0.2 /CUMM) 0 0 06/02 06/01 06/01 0155 2310 2022 Chemistry Lactic Acid Cancelled Troponin I (< 0.11 ng/ml) 0.03 Urines Urinalysis MOD H Urine Color (YEL,AMB,STR) YEL Urine Clarity (CLEAR) CLEAR Urine pH (5.0 - 8.0) 6.5 Ur Specific [place] (1.001 - 1.035) 1.025 Urine Protein (NEG,<30 MG/DL) >=300 H Urine Ketones (NEG) NEG Urine Nitrite (NEG) NEG Urine Bilirubin (NEG) NEG Urine Urobilinogen (0.1 - 1.0 EU/dl) 0.2 Ur Leukocyte Esterase (NEG) NEG Ur Microscopic SEDIMENT EXAMINED Urine RBC (0 - 5 /HPF) 3-5 Urine WBC (0 - 2 /HPF) RARE Ur Epithelial Cells (NONE,FEW) FEW Urine Bacteria (NEG/NONE) FEW H Hyaline Casts (0/LPF) 10-15 H Granular Casts (NONE /LPF) RARE H Urine Mucus (FEW,NONE) FEW Urine Hemoglobin (NEG) MOD H Urine Glucose (N MG/DL) >=1000 H 06/01 Chemistry Lactic Acid (0.7 - 2.1 mmol/L) 1.8 Troponin I (< 0.11 ng/ml) 0.02 Urines Urine Osmolality (300 - 1000 MOSM/KG) 524 Ur Random Creatinine (mg/dL) 49.5 Ur Random Sodium (30 - 90 mmol/L) 108 H Ur Random Potassium (mmol/L) 47.4 Fraction Sodium Excret (<1% %) 4.0 H Diagnostic Data EKG Results EKG tracings independently reviewed, and reveals normal sinus rhythm at 85, normal EKG traffic monitor specialist strips reviewed. What appeared to be a wide complex tachycardia most likely represents artifact. CXR Results Negative Other Results CT scan of the abdomen and pelvis: 1. No evidence of acute abnormality within the abdomen or pelvis. 2. Cholelithiasis. The gallbladder may have a slightly thickened wall, however there is no pericholecystic fluid or pericholecystic inflammatory changes. Furthermore, the gallbladder is not distended. This CT evidence does not favor acute cholecystitis. Correlation with right upper quadrant ultrasound as well as clinical presentation is recommended. In the absence of acute tenderness over the gallbladder, this may represent subclinical chronic cholecystitis. 3. Hypodense lesions within the renal cortices bilaterally. Evaluation of the kidneys is significantly limited without IV contrast. These most likely represent renal cysts and can be confirmed with renal ultrasound. 4. Diffusely decreased attenuation of the hepatic parenchyma, a nonspecific finding but most commonly on the basis of diffuse hepatocellular disease such as hepatic steatosis. Assessment/Plan Assessment/Plan 72-year-old female with history of diabetes mellitus and hypertension presenting with chest and abdominal discomfort, diagnosed with cholecystitis. Myocardial infarctions been ruled out. Would appeared to be wide-complex tachycardia on telemetry actually represents artifact. Blood pressure remains uncontrolled. Recommendations: * Would add amlodipine 5 mg daily for additional blood pressure control * No need to do an inpatient echocardiogram * The patient is okay for discharge from cardiac standpoint * Follow up in the office in 1 week Consult Acknowledgment - Thank you for your consult request.
[2018-06-03] MEDS ORDERED: NORVASC5 M1 PO (17:50)
== END 2018-06-03 18:36 | DRG 445 ==
LOC: ERH 15:52 → ERHI 21:24 → 1NO 21:24 → EDBEDREQ 21:55 → ENRESERV 22:12 → ENTRNSPT 22:42 → 1NO 23:05 → CMPTRNSPT 23:30 → 1NO 06-02 07:37
PROVIDERS: Physician Assistant; Student in an Organized Health Care Education/Training Program
DX: K81.0 Acute cholecystitis (principal); E87.1 Hypo-osmolality and hyponatremia; E87.2 Acidosis; I16.0 Hypertensive urgency; I12.9 Hypertensive chronic kidney disease with stage 1 through stage 4 chronic kidney disease, or unspecified chronic kidney disease; N18.3 Chronic kidney disease, stage 3 (moderate); E11.40 Type 2 diabetes mellitus with diabetic neuropathy, unspecified; E11.65 Type 2 diabetes mellitus with hyperglycemia; E78.5 Hyperlipidemia, unspecified; Z79.4 Long term (current) use of insulin; Z66 Do not resuscitate; H26.9 Unspecified cataract; E11.22 Type 2 diabetes mellitus with diabetic chronic kidney disease; R07.89 Other chest pain
CPT/HCPCS: 1NSP; 84133; 84300; 36592; 71046; 74176; 76775; 78226; 81001; 82436; 82570; 87086; 93005; 93010; A9537; J1644; J1815; J2405; J2765

== ENCOUNTER 2018-06-07 06:17 | Inpatient (IN) | payer OTHER ==
[~2018-06-07] VITALS: Ht 157.5 cm; Wt 82.6 kg
[~2018-06-07 06:17] MED LIST: GLIPIZIDE10 M2 PO; LEVEMIR FL100 UNIT/1 SC; LISINOPRIL10 M1 PO; NORVASC5 M1 PO; PRAVASTATIN SOD20 M2 PO; TOPROL XL25 M1 PO; VITAMIN D250000 UNIT PO
--- NOTE | 2018-06-07 07:39 | ED GENERAL ADULT ---
History of Present Illness General Chief Complaint: Abdominal Pain/Flank Pain Stated Complaint: "UPPER RT ABD PAIN" Source: patient, old records Exam Limitations: no limitations Vital Signs & Intake/Output Vital Signs & Intake/Output Vital Signs Date Time Temp Pulse Resp B/P B/P Pulse O2 O2 Flow FiO2 Mean Ox Delivery Rate 06/07 0748 84 197/90 06/07 0744 99.1 84 18 197/90 98 Room Air 06/07 0654 188/80 06/07 0629 98.7 82 20 189/84 97 Room Air Allergies Coded Allergies: No Known Allergies (06/01/18) Reconcile Medications Amlodipine Besylate (Norvasc) 5 MG TABLET 1 TAB PO DAILY HTN Ergocalciferol (Vitamin D2) (Vitamin D2) 50,000 UNIT CAPSULE 1 CAP PO Q 2 WEEKS VITAMIN D DEFICIENCY (Reported) Glipizide 10 MG TABLET 1 TAB PO BID DIABETES (Reported) Insulin Detemir (Levemir Flextouch) 100 UNIT/ML (3 ML) INSULN.PEN 16 UNIT SC DAILY DIABETES (Reported) Lisinopril 10 MG TABLET 1 TAB PO DAILY blood pressure Pravastatin Sodium 20 MG TABLET 1 TAB PO DAILY HEART (Reported) Triage Note: 72YO FEMALE TO TRIAGE W/CO RUQ PAIN THAT HAS BEEN PRESENT X 1 WEEK. STATES SHE WAS ADMITTED HER FOR A FEW DAYS FOR THE SAME AND DCED ON SAT. PAIN 5/10 THIS AM. Triage Nurses Notes Reviewed? yes HPI: 72-year-old female presents with right upper quadrant pain. Recently discharged after resolution of pain. On the visit she underwent a HIDA scan which did not visualize the gallbladder suggesting evidence of obstruction. Because the pain went away she was discharged. However last night she started to experience the pain. She has not taken her medication this morning. Last meal was at 8 PM last night consisting of cereal. Drink a little water this morning but nothing else. This is a symptoms of nausea without vomiting. Negative for constipation diarrhea. Past History Travel History Traveled to [place] past 21 day No Medical History Any Pertinent Medical History? see below for history Neurological: NONE EENT: BILATERAL CATARACTS Cardiovascular: hypertension, hyperlipidemia Respiratory: NONE Gastrointestinal: NONE Hepatic: NONE Renal: NONE Musculoskeletal: NONE Psychiatric: NONE Endocrine: diabetes, THYROID NODULES Blood Disorders: NONE Cancer(s): NONE History of MRSA: No History of VRE: No History of CDIFF: No Surgical History Surgical History: non-contributory Psychosocial History Who do you live with Spouse Services at Home None What is your primary language Citizen Of [place] Tobacco Use: Never used Family History Family History, If Any: FATHER Coronary artery bypass surgery FH: colon cancer Hx Contributory? No Review of Systems Review of Systems Constitutional: Reports: no symptoms, see HPI. EENTM: Reports: no symptoms. Respiratory: Reports: no symptoms. Cardiovascular: Reports: no symptoms. GI: Reports: no symptoms. Genitourinary: Reports: no symptoms. Musculoskeletal: Reports: no symptoms. Skin: Reports: no symptoms. Neurological/Psychological: Reports: no symptoms. Hematologic/Endocrine: Reports: no symptoms. Immunologic/Allergic: Reports: no symptoms. All Other Systems: Reviewed and Negative Physical Exam Physical Exam General Appearance: no apparent distress Comments: Gen.: Well-nourished, well-developed, no acute distress. Head: Normocephalic, atraumatic. Eyes: Normal inspection bilaterally Ears: Normal inspection bilaterally Nose: Normal inspection Neck: Normal inspection Lungs: clear to auscultation bilaterally, normnal breath sounds Heart: regular rate and rhythm Abdomen: soft with right upper quadrant tenderness upon palpation. Positive Mclain sign. Negative for guarding. Extremities: Normal inspection Neurologic: alert and oriented x3, steady gait Skin: warm and dry Psychiatric: Normal mood and affect, no apparent delusions or hallucinations, behavior appropriate Core Measures ACS in differential dx? No CVA/TIA Diagnosis: No Sepsis Present: No Sepsis Focused Exam Completed? No Progress Differential Diagnoses I considered the following diagnoses in my evaluation of the patient: Appendicitis-the patient did not have migration of the pain to the right lower quadrant, tenderness over McBurney's point, Rovsing sign, white cell blood count was not elevated, and the diagnostic imaging studies did not confirm this Peritonitis-the patient had no rebound or guarding, did not have a rigid abdomen , the white blood cell count was not elevated and There was no inflammatory process on diagnostic imaging studies. Cholecystitis-the patient had no Mclain's sign on exam, white blood cell count was normal, and diagnostic imaging studies showed no inflammatory changes in the region of the gallbladder Pancreatitis-the lipase was normal, patient had no history of alcohol abuse or hypertriglyceridemia, but the diagnostic imaging studies did not show inflammation or edema in the area of the pancreas GI bleed-patient had no history of prior GI bleed, patient denied consistent use of NSAIDs, the patient is not taking anticoagulants such as Coumadin, the patient denied melena. AAA-the patient has a paucity of significant risk factors for vascular disease, there is no pulsatile abdominal mass, lower extremity pulses were equal Hernia-there were no apparent hernias on physical examination, the patient denied any unusual bulges or masses Ischemic bowel-the patient has a paucity of risk factors for vascular disease or thrombosis, physical examination did not reveal pain out of proportion to physical exam findings, diagnostic imaging studies were inconsistent with bowel ischemia Bowel obstruction-patient's abdomen was not significantly distended or hypertympanitic, patient had good bowel sounds, patient was having bowel movements and passing flatus. Plan of Care: Orders Procedure Date/time Status Admit to inpatient 06/07 075 Active US-LIMITED ABDOMEN 06/07 07 Active TROPONIN LEVEL 06/07 07 Active LIPASE 06/07 07 Active LACTIC ACID 06/07 07 Active COMPREHENSIVE METABOLIC PANEL 06/07 07 Active CBC WITHOUT DIFFERENTIAL 06/07 707 Active EKG 06/07 06 Active Laboratory Tests 06/07/18 0723: Anion Gap 10, Estimated GFR 25 L, BUN/Creatinine Ratio 16.0, Glucose 198 H, Lactic Acid 0.6 L, Calcium 8.8, Total Bilirubin 0.5, AST 21, ALT 30, Alkaline Phosphatase 86, Troponin I Pending, Total Protein 6.1 L, Albumin 3.1 L, Globulin 3.0, Albumin/Globulin Ratio 1.0 L, Lipase 113, CBC w Diff Pending, WBC Pending, RBC Pending, Hgb Pending, Hct Pending, MCV Pending, MCH Pending, MCHC Pending, RDW Pending, Plt Count Pending, MPV Pending Initial ED EKG: normal axis, normal intervals, rate of 79. Early r-wave progression. ST segment deviation in 2 and v1 which is present on prior. No STEMI. Prior EKG: unchanged Departure Departure Disposition: STILL A PATIENT Condition: Stable Clinical Impression Primary Impression: Right upper quadrant abdominal pain Secondary Impressions: Hypertensive urgency Referrals: Flora ASHER,Marielena (PCP/Family) Departure Forms: Customer Survey General Discharge Information Critical Care Note Critical Care Note Critical Care Time: non-applicable
[2018-06-07 08:22] LABS: ABSOLUTE BASOPHIL COUNT 0 /CUMM (0.0-0.2); ABSOLUTE EOSINOPHIL COUNT 0.3 /CUMM (0.0-0.7); ABSOLUTE GRANULOCYTE CT 8.2 /CUMM (1.4-6.5); ABSOLUTE LYMPH COUNT 1.2 /CUMM (1.2-3.4); ABSOLUTE MONOCYTE COUNT 0.8 /CUMM (0.10-0.60); BASOPHIL % 0 % (0.0-2.0); EOSINOPHIL % 3.1 % (0-5); GRANULOCYTE % 78.4 % (42.2-75.2); HEMATOCRIT 35.7 % (37-47); MEAN CORPUSCULAR HGB CONC 33.1 G/DL (33.0-37.0); MEAN CORPUSCULAR VOLUME 81.8 FL (81.0-99.0); MEAN PLATELET VOLUME 7.9 FL (7.4-10.4); PLATELET COUNT 292 /CUMM (130-400); RBC DISTRIBUTION WIDTH 14.2 % (11.5-14.5); RED BLOOD CELL CT 4.37 /CUMM (4.20-5.40); WHITE BLOOD CELL COUNT 10.5 /CUMM (4.8-10.8)
--- NOTE | 2018-06-07 09:38 | History & Physical ---
Duane Masters MD 06/07/18 0938: General Information and HPI History of Present Illness: 72-year-old obese woman with past medical history of hypertension, hyperlipidemia, insulin-dependent diabetes mellitus, and CKD stage III seen for evaluation of abdominal pain. Patient was previously admitted to [facility] from 06/01/18 for evaluation of chest pain where she was found to be hypertensive. Abdominal ultrasound and HIDA scan demonstrated acute cholecystitis for which patient was evaluated by general surgery but subsequently refused any surgical intervention. She was treated for her hypertension and started on oral lisinopril and amlodipine and discharged home with these medications. She did not pick out hand her antihypertensive medications as she did not understand "why there were 2 of them ". Patient reports that since her discharged home she is otherwise felt well up until last night. She ate dinner around 8 PM consisting of cereal with milk. She later went to bed and while there developed recurrence of her symptoms of right upper quadrant abdominal pain with associated nausea for which she came to the [facility] ED in the morning for evaluation. She reports intermittent associated subjective fever and chills. Review of systems She otherwise denies any headache, lightheadedness, dizziness, chest pain, palpitations, heartburn, shortness of breath, cough, current nausea, diarrhea, constipation, urinary complaints. Objective Vital signs-temp 98.2-99.1, HR 80-84, RR 16-20, BP 174-197/78-90, SPO2 97-98% on room air Physical exam -General: Well-developed, obese elderly woman in no acute distress -HEENT: NCAT, Ramakrishna, EOMI, anicteric sclera, moist mucous membranes -Neck: Supple, no JVD, trachea midline -Cardio: Normal S1/S2 without murmurs/gallops/rubs; regular rate and rhythm -Pulmonary: Clear to auscultation bilaterally -Abdomen: Soft, moderate diffuse tenderness without guarding or rigidity, bowel sounds positive, Mclain sign positive -Neuro: Awake and alert, cranial nerves II through XII grossly intact -Extremities: Normal pulses, no edema Diagnostics -CBC: WBC 10.5, hemoglobin 11.8, hematocrit 35.7, platelet 292 -BMP: Sodium 137, potassium 4.6, chloride 105, CO2 22, BUN 32, creatinine 2.0, anion gap 10, glucose 198 -LFTs: Within normal limits -Miscellaneous: Lactic acid 0.6, troponin I <0.01, lipase 113 -EKG: Normal sinus rhythm without any ST-T wave segment changes -Ultrasound limited abdomen: 1. Findings consistent with cholecystitis, acute or acute on chronic. The degree of gallbladder wall edema is slightly improved from prior. The patient is tender over the gallbladder. The gallstones are impacted. 2. No dilatation of the bile ducts. 3. Hepatic steatosis. 4. Right renal cysts. The mid to lower right renal cyst is not well characterized. An elective renal CT without and with contrast could be obtained for further evaluation. -CT abdomen/pelvis without IV contrast: * Moderate thickening of the gallbladder wall and surrounding mesenteric stranding in the presence of a 1.9 cm calcified gallstone. Considering the differences in modalities, the findings are similar to 06/07/2018 ultrasound and could represent changes of cholecystitis, acute versus acute on chronic. Clinical correlation and surgical evaluation is suggested. * Mild colon diverticulosis without evidence of acute diverticulitis. * Nonobstructing right renal stone. * Renal cortical cysts, simple and complicated. Assessment 72-year-old woman with multiple medical problems and recent hospitalization for acute cholecystitis seen for evaluation of recurrent right upper quadrant abdominal pain. Presently patient feels fatigued and weak with intermittent bouts of abdominal pain and nausea. Vital signs are significant for elevated systolic blood pressure likely secondary to her abdominal pain and medication noncompliance. Physical examination demonstrates an elderly woman in no acute distress with a soft but moderately diffusely tender abdomen with positive Mclain sign. Labs including CBC and serum chemistry are significant for baseline renal dysfunction. Hepatic function panel, lactic acid, troponin I, and lipase are within normal limits. Abdominal ultrasound and CAT scan demonstrate findings similar to previous suggestive of acute cholecystitis. Clinically patient appears to have had a recurrence of her acute cholecystitis for which she was recently admitted but subsequently declined surgical intervention. Case was discussed with general surgeon Dr. Tomas and the surgical PA whom recommended antibiotic therapy and placement of a percutaneous cholecystostomy tube should patient fail to clinically improve. Patient is being admitted to the general medicine floor for intravenous antibiotics, fluids , probable percutaneous cholecystostomy tube placement, and general surgery consultation. Problem List -Acute cholecystitis -Intractible abdominal pain with nausea -Hypertensive urgency -Hyperlipidemia -History of Hypertension -Chronic Kidney Disease Stage III -Insulin dependent-diabetes mellitus Plan -Admit to general medicine floor -Accuchecks TIDAC/HS with Novolog SSI -Monitor blood pressure -D5 1/2 NS @ 75 mL/hr -Unasyn 3 g IV every 12 hours (renally adjusted) -Zofran PRN for Nausea -Continue home meds:amlodipine, lisinopril, pravastatin, levemir -Hold oral hypoglycemics -consult with general surgery for evaluation of acute cholecystitis -Check UA -Pain control with acetaminophen / dilaudid -Clear liquid diet, n.p.o. overnight for possible placement of percutaneous cholecystostomy tube -DVT PPx with subcutaneous heparin -FULL CODE Allergies/Medications Allergies: Coded Allergies: No Known Allergies (06/01/18) Home Med list Amlodipine Besylate (Norvasc) 5 MG TABLET 1 TAB PO DAILY HTN Ergocalciferol (Vitamin D2) (Vitamin D2) 50,000 UNIT CAPSULE 1 CAP PO Q 2 WEEKS VITAMIN D DEFICIENCY (Reported) Glipizide 10 MG TABLET 1 TAB PO BID DIABETES (Reported) Insulin Detemir (Levemir Flextouch) 100 UNIT/ML (3 ML) INSULN.PEN 16 UNIT SC DAILY DIABETES (Reported) Lisinopril 10 MG TABLET 1 TAB PO DAILY blood pressure Pravastatin Sodium 20 MG TABLET 1 TAB PO DAILY HEART (Reported) Past History Travel History Traveled to [place] past 21 day No Medical History Neurological: NONE EENT: BILATERAL CATARACTS Cardiovascular: hypertension, hyperlipidemia Respiratory: NONE Gastrointestinal: NONE Hepatic: NONE Renal: NONE Musculoskeletal: NONE Psychiatric: NONE Endocrine: diabetes, THYROID NODULES Blood Disorders: NONE Cancer(s): NONE History of MRSA: No History of VRE: No History of CDIFF: No Surgical History Surgical History: non-contributory Past Family/Social History Family History Relations & Conditions if any FATHER Coronary artery bypass surgery FH: colon cancer Psychosocial History Services at Home: None Review of Systems Review of Systems Constitutional: Reports: see HPI. Exam & Diagnostic Data Last 24 Hrs of Vital Signs/I&O Vital Signs Date Time Temp Pulse Resp B/P B/P Pulse O2 O2 Flow FiO2 Mean Ox Delivery Rate 06/07 1457 97.8 80 18 135/80 98 Room Air 06/07 1140 86 142/86 06/07 1140 86 142/86 06/07 1029 97.7 86 18 142/86 98 Room Air 06/07 0958 98.2 80 16 168/78 98 Room Air 06/07 0839 98.2 80 16 174/78 97 Room Air 06/07 0748 84 197/90 06/07 0744 99.1 84 18 197/90 98 Room Air 06/07 0654 188/80 06/07 0629 98.7 82 20 189/84 97 Room Air Intake & Output 06/07 1600 06/07 0800 06/07 0000 Intake Total 775 0 Output Total Balance 775 0 Intake, IV 225 Intake, Oral 550 0 Patient 82.554 kg 81.647 kg Weight Weight Bed scale Measurement Method Assessment/Plan As Ranked By This Provider Problem List: 1. Right upper quadrant abdominal pain Core Measures/Misc (06/02) Acute Coronary Syndrome ACS Diagnosis: No Congestive Heart Failure Congestive Heart Failure Diagnosis No Cerebrovascular Accident CVA/TIA Diagnosis: No VTE (View Protocol) VTE Risk Factors Age>40 No Mechanical VTE Prophylaxis d/t N/A MechProphylax Ordered No VTE Pharm Prophylaxis d/t NA PharmProphylax ordered Sepsis (View protocol) Sepsis Present: No If YES complete Sepsis Event Note If YES complete Sepsis Event Note [facility]18 1512: Core Measures/Misc (06/02) Sepsis (View protocol) If YES complete Sepsis Event Note If YES complete Sepsis Event Note Attending MD Review Statement Attending Statement Attending MD Statement: examined this patient, discuss w/resident/PA/ACADEMIC SUPPORT ASSISTANT, agreed w/resident/PA/ACADEMIC SUPPORT ASSISTANT, reviewed EMR data (avail), discussed with nursing Attending Assessment/Plan: Ms. Benavidez was seen and evaluated. Briefly she is a 72 yo with PMHx: HTN, HL, CKD stage II, IDDM who is p/w intractable abdominal pain with nausea likely due to acute cholecystitis --agree with IV Unasyn --cont to monitor --f/u Surg eval
[2018-06-07 10:29] VITALS: BP 142/86
--- NOTE | 2018-06-07 10:35 | ULTRASOUND REPORT ---
EXAMINATION: US ABDOMEN LIMITED CLINICAL INFORMATION: Right upper quadrant pain. COMPARISON: Renal ultrasound and limited abdominal ultrasound 06/02/2018. CT abdomen 06/01/2018. TECHNIQUE: Real-time imaging of the right upper quadrant abdominal viscera. FINDINGS: PANCREAS: The head and body of the pancreas are unremarkable. The tail of the pancreas is not well visualized due to bowel gas. LIVER: The liver is normal in size, but diffusely increased in echogenicity compatible with hepatic steatosis. GALLBLADDER: The gallbladder remains abnormal. There are impacted gallstones in the neck of the gallbladder which do not move in the left lateral decubitus position. The largest gallstone measures 2.2 cm. The gallbladder wall remains thickened measuring 0.8 cm with edema in the gallbladder wall, slightly less prominent than prior. Trace pericholecystic fluid. Echogenic foci with ringdown are seen in the gallbladder wall suggestive of cholesterolosis. Additionally, layering echogenic gallbladder bile is identified. COMMON BILE DUCT: Normal in caliber measuring 0.3 cm in diameter. RIGHT KIDNEY: The right kidney is normal in size without hydronephrosis. There is limited visualization of the right kidney. Echogenic focus in the interpolar region of the right kidney may reflect a small non-shadowing calculus. A simple cyst in the upper pole of the right kidney measures 1.3 x 1.9 cm in size and a second upper pole cyst measures 1.5 x 1.0 cm in size. A third poorly visualized cyst or complex cyst in the mid to lower pole measures 2.2 x 2.9 cm, not well evaluated. The kidney measures 9.3 cm in maximum dimension. FREE FLUID: None. IMPRESSION: 1. Findings consistent with cholecystitis, acute or acute on chronic. The degree of gallbladder wall edema is slightly improved from prior. The patient is tender over the gallbladder. The gallstones are impacted. 2. No dilatation of the bile ducts. 3. Hepatic steatosis. 4. Right renal cysts. The mid to lower right renal cyst is not well characterized. An elective renal CT without and with contrast could be obtained for further evaluation.
[2018-06-07 14:57] VITALS: BP 135/80
--- NOTE | 2018-06-07 15:12 | Admission Certification ---
Admission Certification Certification Statement - As attending physician, I certify that at the time of - admission, based on clinical presentation, severity of - symptoms, need for further diagnostic testing and - therapeutic interventions, and risk of adverse outcomes - without in-hospital treatment, in my clinical assessment, - this patient requires an acute hospital stay for a minimum - of two nights or longer. I have also considered psychsocial - factors such as support system, advanced age, financial - issues, cognitive issues, and failed out-patient treatments, - past re-admission history, safety of patient, and lack of - compliance as applicable. Specific rationale supporting this admission is: RUQ pain, cholelithiasis
--- NOTE | 2018-06-07 16:50 | CT SCAN REPORT ---
EXAMINATION: CT ABDOMEN AND PELVIS WITHOUT CONTRAST CLINICAL INFORMATION: Abdominal pain. COMPARISON: 06/01/2018 CT scan, 06/02/2018 HIDA scan, 06/07/2018 ultrasound. TECHNIQUE: Multidetector volumetric imaging was performed from the superior aspect of the liver through the pubic symphysis. Sagittal and coronal reformatted images were obtained on the technologist's workstation. DLP: 665.77 mGy-cm FINDINGS: LUNG BASES: The visualized lung bases are unremarkable. Noncontrast images of abdomen and pelvis demonstrate: LIVER, GALLBLADDER, AND BILIARY TREE: The liver is normal in size, shape, and attenuation. No biliary ductal dilatation is present. The gallbladder is distended and contains a 1.9 cm gallstone. There is thickening of the wall of the gallbladder up to 8 mm in single layer thickness. It is more prominent than 06/01/2018 CT scan. There is no dilatation of the CBD. There is no radiodense CBD stone. PANCREAS: Unremarkable. SPLEEN: Unremarkable. ADRENAL GLANDS: Unremarkable. KIDNEYS AND URETERS: The kidneys are normal in size, shape, and attenuation. No hydronephrosis, hydroureter seen. No perinephric stranding. A punctate renal stone is seen in the interpolar region of the right kidney, axial image [id number] from series 3. Multiple bilateral renal cortical hypodense lesions are present, can correlate with renal cysts seen on the comparison ultrasound. Calcification of the wall of the one cortical hypodense lesion in the mid part of the left kidney is noted, axial image 295 from series 3. This could represent a complicated cyst. BLADDER: The urinary bladder is partially full and unremarkable. GASTROINTESTINAL TRACT: The loops of the small bowel and colon are not dilated. Mild diverticular disease of the colon noted without evidence of acute diverticulitis. The appendix is visualized and without evidence of acute appendicitis. There is mild mesenteric fat stranding in the right upper quadrant of the abdomen, in close proximity to the inflamed gallbladder. There is no free fluid in the abdomen or pelvis. ABDOMINAL WALL: No significant hernia is appreciated. LYMPH NODES: Normal. VASCULAR: Unremarkable. PELVIC VISCERA: The uterus and adnexa are unremarkable. OSSEOUS STRUCTURES: Grade 1 anterolisthesis of L4 on L5 and facet arthropathy at this level are noted. L4 pars defects present. Degenerative changes of hip joints are seen. No aggressive bony lesion. IMPRESSION: Moderate thickening of the gallbladder wall and surrounding mesenteric stranding in the presence of a 1.9 cm calcified gallstone. Considering the differences in modalities, the findings are similar to 06/07/2018 ultrasound and could represent changes of cholecystitis, acute versus acute on chronic. Clinical correlation and surgical evaluation is suggested. Mild colon diverticulosis without evidence of acute diverticulitis. Nonobstructing right renal stone. Renal cortical cysts, simple and complicated.
--- NOTE | 2018-06-07 17:50 | Cons- General Surgery ---
Rodger Swanson 06/07/18 1729: General Information and HPI Consulting Request Date of Consult: 06/07/18 Requested By: Arminda Valles MD Reason for Consult: Abdominal pain, acute cholecystitis Source of Information: patient, old records History of Present Illness: 72-year-old female previously admitted on 06/01/2018 with abdominal pain found to have acute cholecystitis versus acute on chronic cholecystitis, had other pressing issues as well such as hypertension and acute kidney injury on chronic kidney disease. She initially declined any surgery and she was discharged after feeling better from her biliary colic however was readmitted this morning for worsening abdominal pain. She states that after her discharge on 06/03 2018, she states that she did not eat much and try to eat some cereal last night, had worsening pain after eating that continue throughout the night and was severe, mid abdominal pain, RUQ, sharp, radiating to the back, severe at time. she presented to the ER for further evaluation. She denies any fever or flulike illness. She is not actively vomiting. Surgery was reconsulted for further evaluation of her abdominal pain. Allergies/Medications Allergies: Coded Allergies: No Known Allergies (06/01/18) Home Med List: Amlodipine Besylate (Norvasc) 5 MG TABLET 1 TAB PO DAILY HTN Ergocalciferol (Vitamin D2) (Vitamin D2) 50,000 UNIT CAPSULE 1 CAP PO Q 2 WEEKS VITAMIN D DEFICIENCY (Reported) Glipizide 10 MG TABLET 1 TAB PO BID DIABETES (Reported) Insulin Detemir (Levemir Flextouch) 100 UNIT/ML (3 ML) INSULN.PEN 16 UNIT SC DAILY DIABETES (Reported) Lisinopril 10 MG TABLET 1 TAB PO DAILY blood pressure Pravastatin Sodium 20 MG TABLET 1 TAB PO DAILY HEART (Reported) Past History Medical History Blood Transfusion Hx: No Neurological: NONE EENT: BILATERAL CATARACTS Cardiovascular: hypertension, hyperlipidemia Respiratory: NONE Gastrointestinal: NONE Hepatic: NONE Renal: NONE Musculoskeletal: NONE Psychiatric: NONE Endocrine: diabetes, THYROID NODULES Blood Disorders: NONE Cancer(s): NONE 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 Home Services at Home: None Smoking Status: Never Smoked Functional Ability ADLs Independent: dressing, eating, toileting, bathing. Review of Systems Review of Systems: Review of systems: See HPI, all other systems negative. Constitutional: No chills fever or weight loss HEENT: No visual changes no sore throat no congestion Cardiovascular: No chest pain ,palpitation , orthopnea or ankle swelling Skin: No jaundice no rashes Respiratory: No dyspnea cough sputum or hemoptysis GI: See HPI : No dysuria no hematuria Musclulo skeletal: No back pain no neck pain, Neurologic: No numbness no confusion Psych: No stress anxiety or depression,. Heme/endocrine: No bruising no bleeding no polyuria or polydipsia Immunology: No splenectomy or history of AIDS Exam & Diagnostic Data Vital Signs and I&O Vital Signs Date Time Temp Pulse Resp B/P B/P Pulse O2 O2 Flow FiO2 Mean Ox Delivery Rate 06/07 1457 97.8 80 18 135/80 98 Room Air 06/07 1140 86 142/86 06/07 1140 86 142/86 06/07 1029 97.7 86 18 142/86 98 Room Air 06/07 0958 98.2 80 16 168/78 98 Room Air 06/07 0839 98.2 80 16 174/78 97 Room Air 06/07 0748 84 197/90 06/07 0744 99.1 84 18 197/90 98 Room Air 06/07 0654 188/80 06/07 0629 98.7 82 20 189/84 97 Room Air Intake & Output 06/07 1600 06/07 0800 06/07 0000 06/06 1600 06/06 0800 06/06 0000 Intake Total 775 0 Output Total Balance 775 0 Intake, IV 225 Intake, Oral 550 0 Patient 182 lb 180 lb Weight Weight Bed scale Measurement Method Physical Exam: Well-developed well-nourished no apparent distress. HEENT: Atraumatic, extraocular motion intact Neck: Supple, no lymphadenopathy Respiratory: No respiratory distress Abdomen: Obese, mild distention, tenderness in the epigastric is mild, moderate tenderness in the right upper quadrant, positive Mclain sign. Normal bowel sounds. Extremities: No edema, no calf pain Neuro: Alert and oriented x3 Psych: Mood affect normal, normal memory normal judgment. Skin: Warm and dry, no rash on exposed skin Last 24 Hours of Labs: Laboratory Tests 06/07 06/07 1006 0723 Chemistry Sodium (137 - 145 mmol/L) 137 Potassium (3.5 - 5.1 mmol/L) 4.6 Chloride (98 - 107 mmol/L) 105 Carbon Dioxide (22 - 30 mmol/L) 22 Anion Gap (5 - 16) 10 BUN (7 - 17 mg/dL) 32 H Creatinine (0.5 - 1.0 mg/dL) 2.0 H Estimated GFR (>60 ml/min) 25 L BUN/Creatinine Ratio (7 - 25 %) 16.0 Glucose (65 - 99 mg/dL) 198 H Lactic Acid (0.7 - 2.1 mmol/L) 0.6 L Calcium (8.4 - 10.2 mg/dL) 8.8 Total Bilirubin (0.2 - 1.3 mg/dL) 0.5 AST (14 - 36 U/L) 21 ALT (9 - 52 U/L) 30 Alkaline Phosphatase (<127 U/L) 86 Troponin I (< 0.11 ng/ml) < 0.01 Total Protein (6.3 - 8.2 g/dL) 6.1 L Albumin (3.5 - 5.0 g/dL) 3.1 L Globulin (1.9 - 4.2 gm/dL) 3.0 Albumin/Globulin Ratio (1.1 - 2.2 %) 1.0 L Lipase (23 - 300 U/L) 113 Hematology CBC w Diff NO MAN DIFF REQ WBC (4.8 - 10.8 /CUMM) 10.5 RBC (4.20 - 5.40 /CUMM) 4.37 Hgb (12.0 - 16.0 G/DL) 11.8 L Hct (37 - 47 %) 35.7 L MCV (81.0 - 99.0 FL) 81.8 MCH (27.0 - 31.0 PG) 27.0 MCHC (33.0 - 37.0 G/DL) 33.1 RDW (11.5 - 14.5 %) 14.2 Plt Count (130 - 400 /CUMM) 292 MPV (7.4 - 10.4 FL) 7.9 Gran % (42.2 - 75.2 %) 78.4 H Lymphocytes % (20.5 - 51.1 %) 11.2 L Monocytes % (1.7 - 9.3 %) 7.3 Eosinophils % (0 - 5 %) 3.1 Basophils % (0.0 - 2.0 %) 0 Absolute Granulocytes (1.4 - 6.5 /CUMM) 8.2 H Absolute Lymphocytes (1.2 - 3.4 /CUMM) 1.2 Absolute Monocytes (0.10 - 0.60 /CUMM) 0.8 H Absolute Eosinophils (0.0 - 0.7 /CUMM) 0.3 Absolute Basophils (0.0 - 0.2 /CUMM) 0 Urines Urinalysis LIGHT H Urine Color (YEL,AMB,STR) STRAW Urine Clarity (CLEAR) HAZY H Urine pH (5.0 - 8.0) 6.0 Ur Specific [place] (1.001 - 1.035) >= 1.030 Urine Protein (NEG,<30 MG/DL) 100 H Urine Ketones (NEG) NEG Urine Nitrite (NEG) NEG Urine Bilirubin (NEG) NEG Urine Urobilinogen (0.1 - 1.0 EU/dl) 0.2 Ur Leukocyte Esterase (NEG) NEG Ur Microscopic SEDIMENT EXAMINED Urine RBC (0 - 5 /HPF) 1-3 Urine WBC (0 - 2 /HPF) 5-10 H Ur Epithelial Cells (NONE,FEW) MANY H Urine Bacteria (NEG/NONE) MANY H Hyaline Casts (0/LPF) 1-3 H Granular Casts (NONE /LPF) 5-10 H Urine Mucus (FEW,NONE) FEW Micro UA Comment CELLULAR CASTS H Urine Hemoglobin (NEG) TRACE-INTACT Urine Glucose (N MG/DL) 100 H Imaging Results: PATIENT: DIPTI MONTELONGO PRESENT AGE: 72 PATIENT ACCOUNT NO: [id number] : 47 LOCATION: [facility] ORDERING PHYSICIAN: Jeffry Browne MD SERVICE DATE: 06/07/18 EXAM TYPE: US - US-LIMITED ABDOMEN EXAMINATION: US ABDOMEN LIMITED CLINICAL INFORMATION: Right upper quadrant pain. COMPARISON: Renal ultrasound and limited abdominal ultrasound 06/02/2018. CT abdomen 06/01/2018. TECHNIQUE: Real-time imaging of the right upper quadrant abdominal viscera. FINDINGS: PANCREAS: The head and body of the pancreas are unremarkable. The tail of the pancreas is not well visualized due to bowel gas. LIVER: The liver is normal in size, but diffusely increased in echogenicity compatible with hepatic steatosis. GALLBLADDER: The gallbladder remains abnormal. There are impacted gallstones in the neck of the gallbladder which do not move in the left lateral decubitus position. The largest gallstone measures 2.2 cm. The gallbladder wall remains thickened measuring 0.8 cm with edema in the gallbladder wall, slightly less prominent than prior. Trace pericholecystic fluid. Echogenic foci with ringdown are seen in the gallbladder wall suggestive of cholesterolosis. Additionally, layering echogenic gallbladder bile is identified. COMMON BILE DUCT: Normal in caliber measuring 0.3 cm in diameter. RIGHT KIDNEY: The right kidney is normal in size without hydronephrosis. There is limited visualization of the right kidney. Echogenic focus in the interpolar region of the right kidney may reflect a small non-shadowing calculus. A simple cyst in the upper pole of the right kidney measures 1.3 x 1.9 cm in size and a second upper pole cyst measures 1.5 x 1.0 cm in size. A third poorly visualized cyst or complex cyst in the mid to lower pole measures 2.2 x 2.9 cm, not well evaluated. The kidney measures 9.3 cm in maximum dimension. FREE FLUID: None. IMPRESSION: 1. Findings consistent with cholecystitis, acute or acute on chronic. The degree of gallbladder wall edema is slightly improved from prior. The patient is tender over the gallbladder. The gallstones are impacted. 2. No dilatation of the bile ducts. 3. Hepatic steatosis. 4. Right renal cysts. The mid to lower right renal cyst is not well characterized. An elective renal CT without and with contrast could be obtained for further evaluation. DICTATED BY: Rashi Knutson MD DATE/TIME DICTATED:06/07/18 0848 PATIENT: DIPTI MONTELONGO PRESENT AGE: 72 PATIENT ACCOUNT NO: [id number] : 47 LOCATION: [facility] ORDERING PHYSICIAN: Duane Masters MD SERVICE DATE: 06/07/18- EXAM TYPE: CAT - CT ABD & PELVIS W/O IV CONTRAS EXAMINATION: CT ABDOMEN AND PELVIS WITHOUT CONTRAST CLINICAL INFORMATION: Abdominal pain. COMPARISON: 06/01/2018 CT scan, 06/02/2018 HIDA scan, 06/07/2018 ultrasound. TECHNIQUE: Multidetector volumetric imaging was performed from the superior aspect of the liver through the pubic symphysis. Sagittal and coronal reformatted images were obtained on the technologist's workstation. DLP: 665.77 mGy-cm FINDINGS: LUNG BASES: The visualized lung bases are unremarkable. Noncontrast images of abdomen and pelvis demonstrate: LIVER, GALLBLADDER, AND BILIARY TREE: The liver is normal in size, shape, and attenuation. No biliary ductal dilatation is present. The gallbladder is distended and contains a 1.9 cm gallstone. There is thickening of the wall of the gallbladder up to 8 mm in single layer thickness. It is more prominent than 06/01/2018 CT scan. There is no dilatation of the CBD. There is no radiodense CBD stone. PANCREAS: Unremarkable. SPLEEN: Unremarkable. ADRENAL GLANDS: Unremarkable. KIDNEYS AND URETERS: The kidneys are normal in size, shape, and attenuation. No hydronephrosis, hydroureter seen. No perinephric stranding. A punctate renal stone is seen in the interpolar region of the right kidney, axial image [id number] from series 3. Multiple bilateral renal cortical hypodense lesions are present, can correlate with renal cysts seen on the comparison ultrasound. Calcification of the wall of the one cortical hypodense lesion in the mid part of the left kidney is noted, axial image 295 from series 3. This could represent a complicated cyst. BLADDER: The urinary bladder is partially full and unremarkable. GASTROINTESTINAL TRACT: The loops of the small bowel and colon are not dilated. Mild diverticular disease of the colon noted without evidence of acute diverticulitis. The appendix is visualized and without evidence of acute appendicitis. There is mild mesenteric fat stranding in the right upper quadrant of the abdomen, in close proximity to the inflamed gallbladder. There is no free fluid in the abdomen or pelvis. ABDOMINAL WALL: No significant hernia is appreciated. LYMPH NODES: Normal. VASCULAR: Unremarkable. PELVIC VISCERA: The uterus and adnexa are unremarkable. OSSEOUS STRUCTURES: Grade 1 anterolisthesis of L4 on L5 and facet arthropathy at this level are noted. L4 pars defects present. Degenerative changes of hip joints are seen. No aggressive bony lesion. IMPRESSION: Moderate thickening of the gallbladder wall and surrounding mesenteric stranding in the presence of a 1.9 cm calcified gallstone. Considering the differences in modalities, the findings are similar to 06/07/2018 ultrasound and could represent changes of cholecystitis, acute versus acute on chronic. Clinical correlation and surgical evaluation is suggested. Mild colon diverticulosis without evidence of acute diverticulitis. Nonobstructing right renal stone. Renal cortical cysts, simple and complicated. DICTATED BY: Jia Rodriguez MD DATE/TIME DICTATED:06/07/181601 BUCKLE WIRE INSERTER:MARI DATE/TIME TRANSCRIBED:06/07/181601 Assessment/Plan Assessment/Plan 72-year-old female returns with biliary colic from acute on chronic cholecystitis Would recommend starting the patient on Unasyn, keeping her n.p.o., continuing IV fluids, pain medication as needed, if she does not improve clinically, would recommend IR guided cholecystostomy tube in the next 24-48 hours. Due to the acute on chronic nature of her gallbladder disease, there is likely a significant amount of swelling/edema of the gallbladder that would make an urgent surgery difficult and possess a potentially unnecessary surgical risk to the patient. It will be more ideal from a surgical standpoint to let the inflammation come down for the next 4-6 weeks while the patient is being treated with a cholecystostomy tube and perform the elective cholecystectomy at that time. Case was discussed with Dr. Brink, will follow with you Problem List: 1. Cholecystitis 2. Cholelithiasis 3. Right upper quadrant abdominal pain Consult Acknowledgment - Thank you for your consult request. [place] GAMINOBrian 06/08/18 1353: Assessment/Plan Consult Acknowledgment - Thank you for your consult request. Attending MD Review Statement Attending Statement Attending MD Statement: examined this patient, discuss w/resident/PA/AUTOTRANSFUSIONIST, agreed w/resident/PA/AUTOTRANSFUSIONIST, discussed with family, reviewed EMR data (avail), discussed w/ nursing, reviewed images Attending Assessment/Plan: Patient seen and examined, agree with above. Patient presented back with abdominal pain after eating cereal with milk. She currently does not complain of any pain and is hungry. AVSS UO ok. Abd-soft, obese, NT. Labs ok. CT scan - increased inflammation around GB with a very thick wall. Given the duration of symptoms (>1 week, and possibly longet due to her DM blunting true symptoms) I do not think that a Lap Keren on this admission is the best treatment choice. Would cont IV Abx, ok to give full liquids today and re-evaluate in the morning. If pain returns at all would benefit from a cholecystostomy tube to temporize the acute symptoms and allow for the imflammation to subside for a subsequent cholecystectomy. [place] timing for the Lap keren would be 4-6 weeks. If patient tolerates diet with no return of pain or change in vitals would then consider sending home on PO Abx.
[2018-06-07 22:06] VITALS: BP 120/50
[2018-06-08 06:20] VITALS: BP 132/70
--- NOTE | 2018-06-08 07:57 | PN- Student ---
Monique Penn 06/08/18 0748: Subjective Subjective: Pt complains of headache, abdominal pain, and difficulty sleeping last evening. Pt states headache is 3/10, in dull, band-like distribution across forehead. Has been intermittent over the past week. Abdominal pain is visceral, 1/10, well controlled and present at epigastrium and RUQ sometimes radiating around to R side of back. Denies nausea, vomiting, chest pain, fever, chills. All other ROS negative. Has not eaten since , currently NPO. No BM or flatus for 3 days. Voiding and ambulating independently. Objective Objective: Exam: Gen: NAD HEENT: PERRL, moist mucous membranes Cardiac: RRR, no M, R, G Lungs: CTA BL Abdomen: +BS, soft, tympanic in LUQ only, tender in RUQ and epigastrium w/ light palpation, + mason's sign. Extremities: DP/PT pulses 2+ BL, trace pitting edema, proprioception and fine touch intact in feet/toes Results Results: Laboratory Tests 06/08/18 0700: Sodium Pending, Potassium Pending, Chloride Pending, Carbon Dioxide Pending, Anion Gap Pending, BUN Pending, Creatinine Pending, BUN/Creatinine Ratio Pending , Magnesium Pending, PT Pending, INR Pending, APTT Pending, CBC w Diff Pending, WBC Pending, RBC Pending, Hgb Pending, Hct Pending, MCV Pending, MCH Pending, MCHC Pending, RDW Pending, Plt Count Pending, MPV Pending 06/07/18 1006: Urinalysis LIGHT H, Urine Color STRAW, Urine Clarity HAZY H, Urine pH 6.0, Ur Specific [place] >= 1.030, Urine Protein 100 H, Urine Ketones NEG, Urine Nitrite NEG, Urine Bilirubin NEG, Urine Urobilinogen 0.2, Ur Leukocyte Esterase NEG, Ur Microscopic SEDIMENT EXAMINED, Urine RBC 1-3, Urine WBC 5-10 H, Ur Epithelial Cells MANY H, Urine Bacteria MANY H, Hyaline Casts 1-3 H, Granular Casts 5-10 H, Urine Mucus FEW, Micro UA Comment CELLULAR CASTS H, Urine Hemoglobin TRACE-INTACT, Urine Glucose 100 H 06/07/18 0723: Anion Gap 10, Estimated GFR 25 L, BUN/Creatinine Ratio 16.0, Glucose 198 H, Lactic Acid 0.6 L, Calcium 8.8, Total Bilirubin 0.5, AST 21, ALT 30, Alkaline Phosphatase 86, Troponin I < 0.01, Total Protein 6.1 L, Albumin 3.1 L, Globulin 3.0, Albumin/Globulin Ratio 1.0 L, Lipase 113, CBC w Diff NO MAN DIFF REQ, RBC 4.37, MCV 81.8, MCH 27.0, MCHC 33.1, RDW 14.2, MPV 7.9, Gran % 78.4 H, Lymphocytes % 11.2 L, Monocytes % 7.3, Eosinophils % 3.1, Basophils % 0, Absolute Granulocytes 8.2 H, Absolute Lymphocytes 1.2, Absolute Monocytes 0.8 H, Absolute Eosinophils 0.3, Absolute Basophils 0 Assessment/Plan Assessment: Pt is a 72 y/o F w/ PMH of recent cholecystitis, HTN, HLD, and T2DM who presents with 4 days of acute on chronic cholecystitis Plan: Neuro: IV acetaminophen for baseline pain, IV dilaudid for breakthrough pain Cardiac: 75mL/hr D5W 1/2 NS Lungs: ambulate independently as tolerated GI: NPO, zofran for nausea : voiding independently Heme: heparin SC Endocrine: last fasting glucose 145, continue insulin detemir 10U daily SC and insulin 2U SC Q6, Infectious disease: continue IV unasyn Surgery: cholecystotomy in 24-48 hrs if symptoms do not improve. discuss w/ Dr. Brink when she will be a good candidate for lap cholecystectomy. Dispo/other: am labs Jakob Duncan 06/08/18 0813: Assessment/Plan Plan: Surgery PA *Patient seen and evaluated. Agree with history and physical of MS3 In short, this is a 72 y/o F w/ PMH of biliary colic from acute on chronic cholecystitis, HTN, HLD, CKD, and T2DM. She is now HD#2 with ongoing abd pain, admited for abx, IVF hydration, and pain managment. Given that patient continue to have moderate amount of pain, she would benifit from IR guided cholecystostomy tube. Team discussed with Dr. Brink and felt that lap choly should be delayed for 4-6 weeks to let inflammation reside. Otherwise, continue current therapy with abx, npo, and as needed pain meds. Will again discuss case with Dr. Brink today and follow with medical team. Brian Brink DO 06/08/18 1409: Attending MD Review Statement Attending Sign Off Attending Cosign Statement: I have: examined this patient, reviewed avalbl EMR data, personally reviewd images, discussd w/resident/PA/ASSISTANT PROFESSOR, discussed mgmt plan w/andreia, discussed mgmt plan w/pt, agreed w/resident/PA/ASSISTANT PROFESSOR. Other Findings: Please see consult addendum for plan.
--- NOTE | 2018-06-08 08:11 | PN- Housestaff ---
Isidro Chirinos 06/08/18 0810: Subjective Follow-up For: Complicated cholecystitis with cholelithiasis Subjective: patient seen and examined at bedside. She was complaining of pain in the right hypochondrium.She also was complaining of mild headache. She denies fever, chills, chest pain, diarrhea, constipation, burning micturition. Review of Systems Constitutional: Reports: see HPI. Objective Last 24 Hrs of Vital Signs/I&O Vital Signs Date Time Temp Pulse Resp B/P B/P Pulse O2 O2 Flow FiO2 Mean Ox Delivery Rate 06/08 1446 97.6 77 20 120/70 96 06/08 0620 98.5 85 18 132/70 96 Room Air 06/07 2206 98.8 81 18 120/50 97 Room Air 06/07 1457 97.8 80 18 135/80 98 Room Air Intake & Output 06/08 1600 06/08 0800 06/08 0000 Intake Total 50 600 1200 Output Total Balance 50 600 1200 Intake, IV 600 600 Intake, Oral 50 600 Physical Exam General Appearance: Alert, Oriented X3, Cooperative, No Acute Distress Cardiovascular: Normal S1, Normal S2 Lungs: Clear to Auscultation, Normal Air Movement Abdomen: Normal Bowel Sounds, Soft, No Tenderness Extremities: No Clubbing, No Cyanosis, No Edema, Normal Pulses, No Tenderness/ Swelling Assessment/Plan Assessment: 72-year-old woman with past medical history hyperlipidemia, hypertension, insulin-dependent diabetes mellitus, CKD, recent hospitalization for acute cholecystitis status post denied surgery at that time presented to emergency department with complaint of right upper quadrant pain, nausea, weakness. At the time of presentation to emergency department her vitals and labs are given below Vitals:Vital signs-temp 98.2-99.1, HR 80-84, RR 16-20, BP 174-197/78-90, SPO2 97 -98% on room air Labs: -CBC: WBC 10.5, hemoglobin 11.8, hematocrit 35.7, platelet 292 -BMP: Sodium 137, potassium 4.6, chloride 105, CO2 22, BUN 32, creatinine 2.0, anion gap 10, glucose 198 -LFTs: Within normal limits -Miscellaneous: Lactic acid 0.6, troponin I <0.01, lipase 113 -EKG: Normal sinus rhythm without any ST-T wave segment changes -Ultrasound limited abdomen: 1. Findings consistent with cholecystitis, acute or acute on chronic. The degree of gallbladder wall edema is slightly improved from prior. The patient is tender over the gallbladder. The gallstones are impacted. 2. No dilatation of the bile ducts. 3. Hepatic steatosis. 4. Right renal cysts. The mid to lower right renal cyst is not well characterized. An elective renal CT without and with contrast could be obtained for further evaluation. -CT abdomen/pelvis without IV contrast: * Moderate thickening of the gallbladder wall and surrounding mesenteric stranding in the presence of a 1.9 cm calcified gallstone. Considering the differences in modalities, the findings are similar to 06/07/2018 ultrasound and could represent changes of cholecystitis, acute versus acute on chronic. Clinical correlation and surgical evaluation is suggested. * Mild colon diverticulosis without evidence of acute diverticulitis. * Nonobstructing right renal stone. * Renal cortical cysts, simple and complicated Problems list ": * Acute cholecystitis * Past medical history of hypertension, hyperlipidemia, insulin-dependent diabetes mellitus, chronic CKD stage III Acute cholecystitis: * Patient was treated hospital last week with the same complaint * At the time she was offered surgery where she denies surgery patient is still n.p.o. * Contacted surgical PA he said that Dr. Tomas will see the patient today * At this time Brian Brink, will not go for surgery * He is planning to wait till 4-6 weeks. The inflammation subside and then he will call for surgery * Patient is currently vitally stable, leukocytosis of 10.5 she is on Unasyn * 3000 mg every 12 hours Hypertension/hyperlipidemia: * Patient home medication lisinopril, amlodipine is continued Insulin-dependent diabetes mellitus She is on insulin detemir 10 units subcu daily Now she is on insulin Novolin sliding scale due to n.p.o. Once she start taking will change Novolin to NovoLog Full code GI/DVT prophylaxis Problem List: 1. Cholelithiasis 2. Cholecystitis 3. Right upper quadrant abdominal pain Pain Ratin Pain Location: Right hypochondrium Pain Goal: Remain pain free Pain Plan: Pain management pathway Tomorrow's Labs & Rationales: Janice Pacheco MD,Amir 06/08/18 1258: Attending MD Review Statement Attending Statement Attending MD Statement: examined this patient, discuss w/resident/PA/CONSERVATION ENFORCEMENT OFFICER, agreed w/resident/PA/CONSERVATION ENFORCEMENT OFFICER, reviewed EMR data (avail), discussed with nursing Attending Assessment/Plan: Pt was seen and evaluated. Chart reviewed --f/u with Surgical service --cont current plan of care
[2018-06-08 11:04] LABS: ABSOLUTE BASOPHIL COUNT 0 /CUMM (0.0-0.2); ABSOLUTE EOSINOPHIL COUNT 0.5 /CUMM (0.0-0.7); ABSOLUTE GRANULOCYTE CT 7.2 /CUMM (1.4-6.5); ABSOLUTE LYMPH COUNT 1.2 /CUMM (1.2-3.4); ABSOLUTE MONOCYTE COUNT 0.7 /CUMM (0.10-0.60); BASOPHIL % 0.4 % (0.0-2.0); EOSINOPHIL % 4.8 % (0-5); HEMATOCRIT 33.6 % (37-47); MEAN CORPUSCULAR HGB 27.4 PG (27.0-31.0); MEAN CORPUSCULAR HGB CONC 33.3 G/DL (33.0-37.0); MEAN CORPUSCULAR VOLUME 82.4 FL (81.0-99.0); MEAN PLATELET VOLUME 8.3 FL (7.4-10.4); PLATELET COUNT 284 /CUMM (130-400); RBC DISTRIBUTION WIDTH 13.7 % (11.5-14.5); RED BLOOD CELL CT 4.08 /CUMM (4.20-5.40); WHITE BLOOD CELL COUNT 9.6 /CUMM (4.8-10.8)
[2018-06-08 11:55] LABS: PTT 25 SEC (25-37)
[2018-06-08 14:46] VITALS: BP 120/70
[2018-06-08 22:31] VITALS: BP 140/60
[2018-06-09 06:00] VITALS: BP 130/60
--- NOTE | 2018-06-09 07:08 | PN- Student ---
See Addendum Monique Penn 06/09/18 0646: Subjective Subjective: Pt has no acute complaints, but does admit to headache earlier this morning, which has since resolved. Pt states she feels better this morning and was able to sleep well, no longer has abdominal pain. She admits to feeling slightly diaphoretic upon waking, but otherwise denies fevers/chills. Denies nausea, vomiting, chest pain, palpitations. All other ROS negative. Has not eaten since , currently NPO. No BM or flatus for 3 days. Voiding and ambulating independently. Objective Objective: Gen: NAD Cardiac: RRR, no M, R, G Lungs: CTA BL Abdomen: +BS, soft, tympanic in LUQ only, nontender to palpation, - mason's sign. Extremities: DP/PT pulses 2+ BL, trace pitting edema, nontender Results Results: Laboratory Tests 06/08/18 0700: Anion Gap 10, Estimated GFR 23 L, BUN/Creatinine Ratio 12.4, Magnesium 2.0, PT 12.0, INR 1.10, APTT 25, CBC w Diff NO MAN DIFF REQ, RBC 4.08 L, MCV 82.4, MCH 27.4, MCHC 33.3, RDW 13.7, MPV 8.3, Gran % 75.0, Lymphocytes % 12.4 L, Monocytes % 7.4, Eosinophils % 4.8, Basophils % 0.4, Absolute Granulocytes 7.2 H, Absolute Lymphocytes 1.2, Absolute Monocytes 0.7 H, Absolute Eosinophils 0.5 , Absolute Basophils 0 06/07/18 1006: Urinalysis LIGHT H, Urine Color STRAW, Urine Clarity HAZY H, Urine pH 6.0, Ur Specific Howard >= 1.030, Urine Protein 100 H, Urine Ketones NEG, Urine Nitrite NEG, Urine Bilirubin NEG, Urine Urobilinogen 0.2, Ur Leukocyte Esterase NEG, Ur Microscopic SEDIMENT EXAMINED, Urine RBC 1-3, Urine WBC 5-10 H, Ur Epithelial Cells MANY H, Urine Bacteria MANY H, Hyaline Casts 1-3 H, Granular Casts 5-10 H, Urine Mucus FEW, Micro UA Comment CELLULAR CASTS H, Urine Hemoglobin TRACE-INTACT, Urine Glucose 100 H 06/07/18 0723: Anion Gap 10, Estimated GFR 25 L, BUN/Creatinine Ratio 16.0, Glucose 198 H, Lactic Acid 0.6 L, Calcium 8.8, Total Bilirubin 0.5, AST 21, ALT 30, Alkaline Phosphatase 86, Troponin I < 0.01, Total Protein 6.1 L, Albumin 3.1 L, Globulin 3.0, Albumin/Globulin Ratio 1.0 L, Lipase 113, CBC w Diff NO MAN DIFF REQ, RBC 4.37, MCV 81.8, MCH 27.0, MCHC 33.1, RDW 14.2, MPV 7.9, Gran % 78.4 H, Lymphocytes % 11.2 L, Monocytes % 7.3, Eosinophils % 3.1, Basophils % 0, Absolute Granulocytes 8.2 H, Absolute Lymphocytes 1.2, Absolute Monocytes 0.8 H, Absolute Eosinophils 0.3, Absolute Basophils 0 Exam & Diagnostic Data Last 24 Hrs of Vitals/I&Os: Vital Signs Date Time Temp Pulse Resp B/P B/P Pulse O2 O2 Flow FiO2 Mean Ox Delivery Rate 06/08 2231 99.4 80 14 140/60 96 Room Air 06/08 1446 97.6 77 20 120/70 96 Intake & Output 06/09 0800 06/09 0000 06/08 1600 Intake Total 600 300 50 Output Total 250 Balance 600 50 50 Intake, IV 600 300 Intake, Oral 0 0 50 Output, Urine 250 Assessment/Plan Assessment: Pt is a 72 y/o F w/ PMH of biliary colic from acute on chronic cholecystitis, HTN, HLD, CKD, and T2DM who is currently on HD#3 with resolved abdominal pain. Pt is currently stable and given her resolution of symptoms, I recommend that she is able to be discharged and followed up at a later date for elective cholecystectomy. Plan: Neuro: pain is currently well managed with IV acetaminophen 1000mg Q6P PRN, switch to PO Cardiac: discontinue 75mL/hr D5W 1/2 NS and allow PO fluid intake Lungs: ambulate independently as tolerated GI: zofran PRN for nausea, advance diet to regular : voiding independently Heme: heparin SC Endocrine: last fasting glucose 175; switch to home insulin regimen with resumption of regular diet Infectious disease: switch IV unasyn to PO Surgery: discuss w/ Dr. Brink about pt's current need for cholecystostomy. recommend elective lap cholecystectomy at later date. Dispo/other: fu am labs [place] PA,Susanna 06/09/18 0854: Assessment/Plan Plan: recommend: trial ada/low fat diet. if does not tolerate, will need perc choletube. Either way, requires elective cholecystectomy in 4-6weeks and should see Dr. Brink as outpt to schedule. FU labs. Cr elevated- cont ivf. will dw attending. abaove discouused with medical front desk specialist Brian Brink DO 06/09/18 3789: Attending MD Review Statement Attending Sign Off Attending Cosign Statement: I have: examined this patient, reviewed avalbl EMR data, personally reviewd images, discussd w/resident/PA/CORE WINDER, discussed mgmt plan w/pt, agreed w/resident/ PA/CORE WINDER. Other Findings: Patient seen and examined, agree with above. Reports no pain or complaints since starting full liquids yesterday. Eating low fat diet for breakfast with no issues. AVSS. Abd-soft, NT/ND. Labs ok Low fat diet for at least 24 hours to evaluate for symptom recurrence, if no pain or other symptoms for at least 24 hours with diet probaly ok to discharge home on PO Abx. If abny symptoms arise will need a cholecystostomy. I did explain to the patient that symptoms may recur before the elective Lap Keren and if it does happen will re-evaluate for appropriate treatment at that time. Patient and family understand and agree with the plan. Shivam Schultea 06/10/18 1120: Assessment/Plan Assessment: I was inadvertently assigned to this patient by the medical student, I did not see this patient.
--- NOTE | 2018-06-09 07:12 | PN- Housestaff ---
See Addendum Subjective Follow-up For: Cholecystitis with cholelithiasis Subjective: Patient seen and examined at bedside. She was complaining of mild pain in the right hypochondrium. She denies nausea, vomiting, fever, chills, chest pain, diarrhea, constipation. Review of Systems Constitutional: Reports: see HPI. Objective Last 24 Hrs of Vital Signs/I&O Vital Signs Date Time Temp Pulse Resp B/P B/P Pulse O2 O2 Flow FiO2 Mean Ox Delivery Rate 06/09 06 99.0 80 16 130/60 95 Room Air 06/08 2231 99.4 80 14 140/60 96 Room Air 06/08 1446 97.6 77 20 120/70 96 Intake & Output 06/09 1600 06/09 0800 06/09 0000 Intake Total 600 300 Output Total 250 Balance 600 50 Intake, IV 600 300 Intake, Oral 0 0 Number 0 Bowel Movements Output, Urine 250 Physical Exam General Appearance: Alert, Oriented X3, Cooperative, No Acute Distress Cardiovascular: Normal S1, Normal S2 Lungs: Clear to Auscultation, Normal Air Movement Abdomen: Normal Bowel Sounds, Soft, No Hepatospenomegaly, No Masses Extremities: No Clubbing, No Cyanosis, No Edema, Normal Pulses, No Tenderness/ Swelling Assessment/Plan Assessment: 72-year-old woman with past medical history hyperlipidemia, hypertension, insulin-dependent diabetes mellitus, CKD, recent hospitalization for acute cholecystitis status post denied surgery at that time presented to emergency department with complaint of right upper quadrant pain, nausea, weakness. At the time of presentation to emergency department her vitals and labs are given below Vitals:Vital signs-temp 98.2-99.1, HR 80-84, RR 16-20, BP 174-197/78-90, SPO2 97 -98% on room air Labs: -CBC: WBC 10.5, hemoglobin 11.8, hematocrit 35.7, platelet 292 -BMP: Sodium 137, potassium 4.6, chloride 105, CO2 22, BUN 32, creatinine 2.0, anion gap 10, glucose 198 -LFTs: Within normal limits -Miscellaneous: Lactic acid 0.6, troponin I <0.01, lipase 113 -EKG: Normal sinus rhythm without any ST-T wave segment changes -Ultrasound abdomen: 1. Findings consistent with cholecystitis, acute or acute on chronic. The degree of gallbladder wall edema is slightly improved from prior. The patient is tender over the gallbladder. The gallstones are impacted. 2. No dilatation of the bile ducts. 3. Hepatic steatosis. 4. Right renal cysts. The mid to lower right renal cyst is not well characterized. An elective renal CT without and with contrast could be obtained for further evaluation. CT abdomen/pelvis without IV contrast: * Moderate thickening of the gallbladder wall and surrounding mesenteric stranding in the presence of a 1.9 cm calcified gallstone. Considering the differences in modalities, the findings are similar to 06/07/2018 ultrasound and could represent changes of cholecystitis, acute versus acute on chronic. Clinical correlation and surgical evaluation is suggested. * Mild colon diverticulosis without evidence of acute diverticulitis. * Nonobstructing right renal stone. * Renal cortical cysts, simple and complicated Problems list ": * Acute cholecystitis * Past medical history of hypertension, hyperlipidemia, insulin-dependent diabetes mellitus, chronic CKD stage III Acute cholecystitis: * Patient was admitted for cholecystitis with cholelithiasis * Clinically the patient stable right now * General surgery recommendation appreciated * General surgery are planing to do lap sofi after 4 weeks on outpatient basis * Patient diet is advanced today she is asymptomatic * Will follow general surgery recommendation * Anticipated discharge in next 24-48 hours Hypertension/hyperlipidemia: * Patient home medication lisinopril, amlodipine is continued Insulin-dependent diabetes mellitus She is on insulin detemir 10 units subcu daily No she is on NovoLog insulin sliding scale Full code GI/DVT prophylaxis Problem List: 1. Cholelithiasis 2. Cholecystitis 3. Right upper quadrant abdominal pain Pain Ratin Pain Location: Right hypochondrium Pain Goal: Remain pain free Pain Plan: Pain management pathway Tomorrow's Labs & Rationales: No labs
[2018-06-09 08:23] LABS: ABSOLUTE BASOPHIL COUNT 0 /CUMM (0.0-0.2); ABSOLUTE EOSINOPHIL COUNT 0.4 /CUMM (0.0-0.7); ABSOLUTE GRANULOCYTE CT 5.6 /CUMM (1.4-6.5); ABSOLUTE LYMPH COUNT 1.8 /CUMM (1.2-3.4); ABSOLUTE MONOCYTE COUNT 0.7 /CUMM (0.10-0.60); BASOPHIL % 0.4 % (0.0-2.0); EOSINOPHIL % 4.8 % (0-5); GRANULOCYTE % 66.1 % (42.2-75.2); HEMATOCRIT 32.2 % (37-47); MEAN CORPUSCULAR HGB 27.5 PG (27.0-31.0); MEAN CORPUSCULAR HGB CONC 33.3 G/DL (33.0-37.0); MEAN CORPUSCULAR VOLUME 82.7 FL (81.0-99.0); MEAN PLATELET VOLUME 7.9 FL (7.4-10.4); PLATELET COUNT 350 /CUMM (130-400); RBC DISTRIBUTION WIDTH 14.1 % (11.5-14.5); WHITE BLOOD CELL COUNT 8.5 /CUMM (4.8-10.8)
--- NOTE | 2018-06-09 13:47 | Patient Discharge Instructions ---
Discharge Instructions General Discharge Information You were seen/treated for: Cholelithiasis/cholecystitis Watch for these problems: Fever, chills, abdominal pain, diarrhea, constipation Special Instructions: Please follow-up with your primary care physician 1 week Please follow-up with your General surgeon in 1-2 weeks after d/c please take antibiotics for one week. come to ER IF YOU DEVELOP ABD PAIN, NAUSEA, VOMIITNG. Diet Recommended Diet: Diabetic Activity Activity Self Limited: Yes Acute Coronary Syndrome Inclusion Criteria At DC or during hospital stay patient has or had the following: ACS DIAGNOSIS No Discharge Core Measures Meds if any: Prescribed or Continued at Discharge Meds if any: NOT Prescribed or Continued at Discharge Congestive Heart Failure Inclusion Criteria At DC or during hospital stay patient has or had the following: CHF DIAGNOSIS No Discharge Core Measures Meds if any: Prescribed or Continued at Discharge Meds if any: NOT Prescribed or Continued at Discharge Cerebrovascular accident Inclusion Criteria At DC or during hospital stay patient has or had the following: CVA/TIA Diagnosis No Discharge Core Measures Meds if any: Prescribed or Continued at Discharge Meds if any: NOT Prescribed or Continued at Discharge Venous thromboembolism Inclusion Criteria VTE Diagnosis No VTE Type NONE VTE Confirmed by (Test) NONE Discharge Core Measures - Per Current guidelines, there needs to be overlap - treatment for the first 5 days of Warfarin therapy. - If discharged on Warfarin prior to 5 days of - overlap therapy, the patient will need to be - assessed for post discharge needs including - *Post discharge parental anticoagulation - *Warfarin and/or parental anticoagulation education - *Follow up date to check INR post discharge At least 5 days overlap therapy as Inpatient No Meds if any: Prescribed or Continued at Discharge Note: Overlap Therapy is Warfarin and Anticoagulant Meds if any: NOT Prescribed or Continued at Discharge
--- NOTE | 2018-06-09 15:11 | Discharge Summary ---
Visit Information Visit Dates Admission Date: 06/07/18 Discharge Date: 06/10/18 Hospital Course Course Attending Physician: Priyank Parsons MD Primary Care Physician: Flora ASHER,[facility] Hospital Course: 72-year-old woman with past medical history hyperlipidemia, hypertension, insulin-dependent diabetes mellitus, CKD, recent hospitalization for acute cholecystitis status post denied surgery at that time presented to emergency department with complaint of right upper quadrant pain, nausea, weakness. Hospital Course: At the time of presentation to emergency department her vitals and labs are given below Vitals:Vital signs-temp 98.2-99.1, HR 80-84, RR 16-20, BP 174-197/78-90, SPO2 97 -98% on room air Labs: -CBC: WBC 10.5, hemoglobin 11.8, hematocrit 35.7, platelet 292 -BMP: Sodium 137, potassium 4.6, chloride 105, CO2 22, BUN 32, creatinine 2.0, anion gap 10, glucose 198 -LFTs: Within normal limits -Miscellaneous: Lactic acid 0.6, troponin I <0.01, lipase 113 -EKG: Normal sinus rhythm without any ST-T wave segment changes -Ultrasound abdomen: 1. Findings consistent with cholecystitis, acute or acute on chronic. The degree of gallbladder wall edema is slightly improved from prior. The patient is tender over the gallbladder. The gallstones are impacted. 2. No dilatation of the bile ducts. 3. Hepatic steatosis. 4. Right renal cysts. The mid to lower right renal cyst is not well characterized. An elective renal CT without and with contrast could be obtained for further evaluation. CT abdomen/pelvis without IV contrast: * Moderate thickening of the gallbladder wall and surrounding mesenteric stranding in the presence of a 1.9 cm calcified gallstone. Considering the differences in modalities, the findings are similar to 06/07/2018 ultrasound and could represent changes of cholecystitis, acute versus acute on chronic. Clinical correlation and surgical evaluation is suggested. * Mild colon diverticulosis without evidence of acute diverticulitis. * Nonobstructing right renal stone. * Renal cortical cysts, simple and complicated He was tretaed for the following Problems list: * Acute cholecystitis * Past medical history of hypertension, hyperlipidemia, insulin-dependent diabetes mellitus, chronic CKD stage III Acute cholecystitis: She was complaining of abdominal pain in right hypochondriam and abdominal images were significant for cholecystisti and cholelithiasis. Surgery was consulted. Surgery recommednded to treat inflamtion of GB first and will do surgery on outpatient basis after 4 to 6 wees. She was started on IV ceftriaxone at hospital and she remain asymptomatic and can tolerate oral intake. She will be discharge hime today and will F/U with Dr Brink on out patient basis. Hypertension/hyperlipidemia: * Patient home medication lisinopril, amlodipine was continued at Hospital Insulin-dependent diabetes mellitus Her home insulin dose was continued at Hospital Allergies: Coded Allergies: No Known Allergies (06/01/18) Disposition Summary Disposition Principal Diagnosis: Acute Cholecystitis Additional Diagnosis: HTN DM Discharge Disposition: home or self care Discharge Instructions General Discharge Information Code Status: Full Code Patient's Diet: Diabetic CC2 Patient's Activity: Self limitid Follow-Up Instructions/Appts: Please f/u with your [facility] care physician in one week Please f/u with Dr Brink in 4 to 6 weeks in case of any medical attention please conatct your PCP Medications at Discharge Discharge Medications: Continue taking these medications: Glipizide (Glipizide) 10 MG TABLET 1 Tablet ORAL TWICE DAILY Comments: NOT GIVEN IN THE HOSPITAL Pravastatin Sodium (Pravastatin Sodium) 20 MG TABLET 1 Tablet ORAL DAILY Comments: Last Taken: 06/10/18 Time: 8:46 AM Insulin Detemir (Levemir Flextouch) 100 UNIT/ML (3 ML) INSULN.PEN 16 Unit SC DAILY Comments: Last Taken: 06/10/18 Time: 8:47 AM Ergocalciferol (Vitamin D2) (Vitamin D2) 50,000 UNIT CAPSULE 1 Capsule ORAL EVERY 2 WEEKS Comments: NOT GIVEN IN THE HOSPITAL Lisinopril (Lisinopril) 10 MG TABLET 1 Tablet ORAL DAILY Qty = 30 Comments: Last Taken: 06/10/18 Time: 8:47 AM Amlodipine Besylate (Norvasc) 5 MG TABLET 1 Tablet ORAL DAILY Qty = 30 Comments: Last Taken: 06/10/18 Time: 8:46 AM Start taking the following new medications: Amoxicillin/Potassium Clav (Augmentin 875-125 Tablet) 875 MG-125 MG TABLET 1 Tablet ORAL TWICE DAILY Qty = 14 No Refills Comments: NOT YET GIVEN IN HOSPITAL Copies To: Flora ASHER,Marielena; [place] DO,Brian Attending MD Review Statement Documenting Attending: Issa ASHER,Priyank Other Findings: Patient tolerated her food in past 24 hrs without symptoms. Surgery recommend outpatient follow up in 4-6 weeks for elective cholecystectomy. Discharge instructions given to patient and bedside which they understand and verbalises. In case her clinical condition worsens she is instructed to call 911 or come to ER immediately. Follow with general surgery Dr Tomas in 4 weeks for elective cholecystectomy.
[2018-06-09 15:13] VITALS: BP 163/72
[2018-06-09 22:42] VITALS: BP 162/74
--- NOTE | 2018-06-10 05:15 | PN- Housestaff ---
See Addendum Subjective Follow-up For: Biliary coliic 2ndary to acute on chronic cholecystitis Subjective: Patient seen seated comfortably in bed, had just finished her breakfast, which she tolerated well. She denied fevers, chills, abdominal pain, nausea or vomiting. She is eager to go home as she feels that her symptoms have improved. Review of Systems Constitutional: Denies: chills, fever, malaise, weakness. Objective Last 24 Hrs of Vital Signs/I&O Vital Signs Date Time Temp Pulse Resp B/P B/P Pulse O2 O2 Flow FiO2 Mean Ox Delivery Rate 06/10 0846 82 122/78 06/10 0846 82 122/78 06/10 0800 96 Room Air 06/10 0644 98.7 80 20 140/86 97 Room Air 06/09 2242 98.3 82 18 162/74 98 Room Air 06/09 1513 98.9 82 18 163/72 96 Intake & Output 06/10 1600 06/10 0800 06/10 0000 Intake Total 120 Output Total Balance 120 Intake, Oral 120 Physical Exam General Appearance: Alert, Oriented X3, Cooperative, No Acute Distress Assessment/Plan Assessment: 72-year-old woman with PMH hyperlipidemia, hypertension, diabetes mellitus, CKD stage III, recent hospitalization for acute cholecystitis declined surgery at that time, presents with complaints of RUQ pain, nausea, weakness. Problems: * Biliary colic 2ndary to acute on chronic cholecystitis * Past medical history of hypertension, hyperlipidemia, insulin-dependent diabetes mellitus, chronic CKD stage III Plan: * Clinically the patient is improving, tolerating diet and w/o abd pain, n/v * Per gen surg, patient should f/u in 4-6 weeks for elective cholecystectomy * Patient diet is advanced today she is asymptomatic, tolerating well * For d/c home today, to return to the ED with any symptoms of abdominal pain or fever/chills, nausea/vomiting * If patient returns and is not a surgical candidate, possible IR cholecystostomy tube placement * Amlodipine & lisinopril for HTN * Continue Unasyn, d/c on antibiotic to complete 7 day course recommended per gen surg * ISS and fingersticks Full code GI/DVT prophylaxis Heparin & alps [id number] Problem List: 1. Cholecystitis 2. Right upper quadrant abdominal pain 3. CKD (chronic kidney disease) stage 3, GFR 30-59 ml/min Pain Ratin Pain Location: none Pain Goal: Pain 4 or less Pain Plan: per pathway Tomorrow's Labs & Rationales: none
[2018-06-10 06:44] VITALS: BP 140/86
--- NOTE | 2018-06-10 08:12 | PN- Student ---
Monique Penn 06/10/18 0803: Subjective Subjective: Pt has no acute complaints, slept well, denies abdominal pain or nausea. Denies fever/chills, headache, chest pain, SOB. All other ROS negative. Tolerating regular diet well. Normal BM this morning. Voiding and ambulating independently. Objective Objective: Gen: NAD Cardiac: RRR, no M, R, G Lungs: CTA BL Abdomen: +BS, soft, tympanic in LUQ only, nontender to palpation, - mason's sign. Extremities: DP/PT pulses 2+ BL, trace pitting edema, nontender Assessment/Plan Assessment: Pt is a 72 y/o F w/ PMH of biliary colic from acute on chronic cholecystitis, HTN, HLD, CKD, and T2DM who is currently on HD#3 with resolved abdominal pain. Pt is currently stable and given her resolution of symptoms, I recommend that she is able to be discharged and followed up at a later date for elective cholecystectomy. Plan: Neuro: no current pain Cardiac: PO fluid intake Lungs: ambulate independently as tolerated GI: low fat diet : voiding independently Heme: heparin SC Endocrine: last fasting glucose 181; home insulin regimen and f/u w/ PCP outpt for optimization Infectious disease: switch IV unasyn to PO, finish outpt Surgery: f/u outpt w/ Dr. Brink about elective lap sofi, plan surgery for 4-6 wks after hospital discharge Dispo/other: plan for d/c today Charity Altamirano 06/10/18 0820: Addendum Note Addendum Agree with JAZMINE-S note above. 72 y/o F admitted with biliary colic from acute on chronic cholecystitis. Abdominal pain has resolved. Tolerating low fat diet without nausea or emesis. Non tender on exam. Voiding freely and bowel movement this am. Okay for discharge home from surgical standpoint. Recommend 1 week of antibiotics and follow up with Dr. Brink in 4-6 weeks for outpatient cholecystectomy.
[2018-06-10 08:46] VITALS: BP 122/78
[2018-06-10] MEDS ORDERED: AUGMENTIN 875-1 EACH PO (10:30)
== END 2018-06-10 11:47 | DRG 446 ==
LOC: ERH 06:17 → 2NA 07:58 → ERHI 07:58 → ENRESERV 09:04 → ENTRNSPT 10:00 → EDTRNSPT 10:13 → EDTRNSPTSTS 10:13 → 2NA 10:18 → CMPTRNSPT 10:29 → 2NA 06-09 07:40 → ENPENDDIS 06-10 10:58 → 2NA 06-10 11:47
PROVIDERS: Emergency Medicine; Internal Medicine Interventional Cardiology; Preventive Medicine Addiction Medicine
DX: K80.00 Calculus of gallbladder with acute cholecystitis without obstruction (principal); E66.9 Obesity, unspecified; Z68.33 Body mass index [BMI] 33.0-33.9, adult; I12.9 Hypertensive chronic kidney disease with stage 1 through stage 4 chronic kidney disease, or unspecified chronic kidney disease; E11.22 Type 2 diabetes mellitus with diabetic chronic kidney disease; N18.3 Chronic kidney disease, stage 3 (moderate); Z79.4 Long term (current) use of insulin; I16.0 Hypertensive urgency; E78.5 Hyperlipidemia, unspecified
CPT/HCPCS: 2NASP; 36592; 74176; 81001; 82436; 93005; 93010; 96374; 96375; 99291; J0131; J0360; J1644; J1815; J1885; J2405; J7042; Q2036